=== PATIENT | female | born 1965 | race Caucasian/White ===

== ENCOUNTER 2017-01-22 08:24 | Inpatient (IN) ==
[2017-01-22 08:58] LABS: Basophils % 0.3 % (0.0-0.8); Eosinophils % 0.2 % (0.00-10.9); Hematocrit 37.3 VOL% (35.7-47.0); Hemoglobin 11.8 GM/DL (12.0-16.0); Immature Granulocytes % 0.7 %; Lymphocytes # 1.4 10*3/uL (1.4-4.0); Lymphocytes % 8.9 % (21.3-54.2); Mean Corpuscular HGB Conc 31.6 GM/DL (32-36); Mean Corpuscular Hemoglobin 31 PG (27-34); Mean Corpuscular Volume 96.4 FL (87-102); Mean Platelet Volume 10.8 FL (9.6-12.0); Monocytes # 0.9 10*3/uL (0.11-0.8); Monocytes % 6.2 % (1.7-12.7); Neutrophils # 12.6 10*3/uL (1.4-7.4); Neutrophils % 83.7 % (38.7-73.9); Platelet Count 247 T/CUMM (130-400); Red Blood Count 3.87 MC/CUMM (3.8-5.5); Red Cell Distribution Width 13.3 % (9.3-17.3); White Blood Count 15.1 T/CUMM (4-12)
--- NOTE | 2017-01-22 09:02 | XRay Report ---
Referring Physician: Davion Jackson Exam: XR chest 1V portable Date: January 22, 2017 at 8:41 AM Reason: Shortness of breath Comparison: Chest 2 views May 23, 2016 Findings: The cardiac silhouette is upper normal in size. There are opacities within both lower lung zones. This could represent pulmonary edema or pneumonia with atelectasis. No pneumothorax is identified, but there is likely minimal bilateral pleural fluid. No acute osseous process is seen. Impression: There are opacities within both lower lung zones. This could represent pulmonary edema or pneumonia with atelectasis. Minimal bilateral pleural fluid is also suspected. PROCEDURE INTERPRETED AT [facility] DEPARTMENT OF RADIOLOGY Final Report Signed by: Dr. Skylar Alvares
[2017-01-22 09:08] LABS: INR 1.2; PT Patient Result 12.9 SECS; Partial Thromboplastin Time 27.8 SECS (0-40)
[2017-01-22 09:26] LABS: Alanine Aminotransferase 19 U/L (13-56); Albumin 2.5 G/DL (3.4-5.0); Alkaline Phosphatase 87 U/L (45-117); Aspartate Amino Transferase 43 U/L (0-37); Blood Urea Nitrogen 15 MG/DL (7-18); Calcium 8.2 MG/DL (8.5-10.1); Glucose 141 MG/DL (74-106); Magnesium 2.1 MG/DL (1.8-2.4); Osmolality,Calculated 281.4 MOS/KG (273-304); Potassium 4.2 MMOL/L (3.5-5.1); Sodium 140 MMOL/L (136-145); Total Protein 6.2 G/DL (6.4-8.3); Troponin I Only < 0.015 NG/ML (0.00-0.045)
[2017-01-22 09:58] LABS: Apearance,Urine Slightly Hazy (Clear); Bacteria,Urine Occasional /HPF (Few); Bilirubin,Urine Negative (Negative); Blood, Urine Moderate mg/dL (Negative); Glucose,Urine (UA) Negative (Negative); Ketones,Urine 80 mg/dL (Negative); Mucus,Urine Occasional /LPF (Occasional); Nitrite,Urine Negative (Negative); Protein,Urine 30 MG/DL; RBC,Urine 22 /HPF (0-4); Squamous Epithelial Cell,Urine Occasional /HPF (0-10); Urine Color Yellow (Yellow); Urine Urobilinogen < 2.0 EU/DL (0.2-1.0); WBC,Urine 1 /HPF (0-6)
[2017-01-22] MEDS ORDERED: cefTRIAXone 1,000 MG in SODIUM CHLORIDE 0.9% 100 ML IV STA (09:59)
[2017-01-22] MEDS ORDERED: methylPREDNISolone SOD SUC 125 MG/2 ML VIAL IV STA (09:59)
[2017-01-22] MEDS ORDERED: ONDANSETRON 4 MG/2 ML VIAL IV STA (09:59)
[2017-01-22] MEDS ORDERED: ASPIRIN 325 MG TABLET PO STA (09:59)
[2017-01-22] MEDS ORDERED: FUROSEMIDE 100 MG/10 ML VIAL IV STA (09:59)
[2017-01-22] MEDS ORDERED: ALBUTEROL 2.5 MG/3 ML NEB RESP TX SCH (10:00)
--- NOTE | 2017-01-22 10:13 | Emergency Department Note ---
Flakito Narayanan Mantricia, am scribing for, and in the presence of, Arthur Rider MD 10:07. Tereso Narayanan Charles R, MD, personally performed the services described in this documentation, ascribed by Sana Fraga in my presence, and it is both accurate and complete 013 . Arrival - Arrival Chief Complaint: Shortness of Breath Stated Complaint: Shortness of Breath ED Nursing Triage Note: pt is having shortness of breath. pt home lasix dose is now 1/2 dose for past two weeks. she has noticed the sob increasing since the decrease in lasix dose. Mode of Arrival: Stretcher Limitations: No Limitations Source: Patient Time Seen by Provider: 01/22/17 09:19 - History of Present Illness HPI Narrative: Pt is a 51 y/o white female arriving to ED by EMS with c/o SOB that onset yesterday. She reports that her Lasix dose has been cut to 1/2 dose for the past two weeks. She has noticed waxing and waning SOB since the Lasix dose decrease. She is unsure if she has a PMHx of CHF; however, she does report sleep apnea, in which she wears a mask nightly. She states she occasionally takes breathing treatments at home and is also on home O2, Prednisone, and a daily Aspirin. Pt also reports OTT and a fever all week, with the highest being 101. Pt's PCP is Dr. Green. She reports no other complaints to ED. Onset (ago): day(s) Consistency: constant Severity: mild Allergies/Adverse Reactions: Allergies Allergy/AdvReac Type Severity Reaction Status Date / Time No Known Allergies Allergy Verified 05/23/16 10:39 Home Medications: Home Medications Medication Instructions Recorded Confirmed Type Carvedilol [Coreg] 12.5 mg PO BID 05/17/16 05/23/16 History Escitalopram [Lexapro] 10 mg PO DAILY 05/17/16 05/23/16 History Fluticasone 50 Mcg Nasal [place] 1 spray BOTH NARES DAILY 05/17/16 05/23/16 History [Flonase Nasal [place]] Gabapentin 100 mg PO TID 05/17/16 05/23/16 History Insulin NPH Human Isophane 20 unit SUBCUT QAM 05/17/16 05/23/16 History [NovoLIN N] Insulin Regular, Human [NovoLIN R] See Protocol SUBCUT DIRECTED PRN 05/17/16 05/23/16 History Levothyroxine Tab [Synthroid Tab] 25 mcg PO DAILY 05/17/16 05/23/16 History Magnesium Chloride [Slow Mag] 64 mg PO BID 05/17/16 05/23/16 History Omeprazole [Prilosec] 20 mg PO BID 05/17/16 05/23/16 History Oxycodone HCl 10 mg PO TID PRN 05/17/16 05/23/16 History Tizanidine HCl [Zanaflex] 4 mg PO TID 05/17/16 05/23/16 History predniSONE TAB [PredniSONE] 10 mg PO DAILY 05/17/16 05/23/16 History sulfaSALAzine [Sulfasalazine] 500 mg PO BID 05/17/16 05/23/16 History Acetaminophen Tab [Tylenol Tab] 650 mg PO Q6H PRN #0 tablet 05/25/16 Rx Albuterol/Ipratropium Neb [Duoneb] 3 ml RESP TX RT Q6H #120 05/25/16 Rx nebulization solution Aspirin Tab 325 mg PO DAILY tablet 05/25/16 Rx Docusate Sodium Cap [Colace Cap] 100 mg PO BID capsule 05/25/16 Rx Furosemide Tab [Lasix Tab] 20 mg PO DAILY #30 tablet 05/25/16 Rx Glimepiride [Amaryl] 2 mg PO DAILY W/BREAKFAST #30 05/25/16 Rx tablet Hydroxychloroquine [Plaquenil] 200 mg PO BID #60 05/25/16 05/23/16 Rx Insulin NPH Hum/Reg Insulin Hm 40 unit SUBCUT TID #0 05/25/16 05/23/16 Rx [NovoLIN 70/30] Insulin NPH [HumuLIN N] 20 unit SUBCUT BEDTIME #5 injection 05/25/16 Rx Potassium Chloride Cap/Tab [K Dur] 20 meq PO TID W/MEALS #90 tablet 05/25/16 Rx Skin Healing Oint (Aquaphor) 1 applic TOP PRN PRN #0 ointment 05/25/16 Rx [Aquaphor] Review of System - Review of System 12 point system: reviewed and no additional remarkable complaints except as stated - Review of System Constitutional: Present: fever (all week). Absent: chills, diaphoresis Eyes: Absent: discharge, pain Head/Ears/Nose/Throat: Absent: earache, epistaxis Respiratory: Absent: cough, respiratory distress, wheezing Cardiovascular: Present: dyspnea on exertion. Absent: chest pain, palpitations Gastrointestinal: Absent: abdominal pain, nausea, vomiting, diarrhea Genitourinary female: Absent: abnormal menses, dysuria Musculoskeletal: Absent: arm pain, back pain, leg pain, neck pain Skin: Absent: rash, lesions Neurological: Absent: headache, weakness Psychiatric: Absent: anxiety, depression Medical,Surgical,& Family Hx - Medical History Cardio: History of: CHF, Hypertension Endocrine: History of: Diabetes Mellitus (IDDM), Dyslipidemia Rheumatology: History of;: Rheumatoid Arthritis Respiratory: History of: Obstructive Sleep Apnea Genitourinary: History of: Bladder Problem ("poor bladder control") Gastrointestinal: History of: GI Problems (GASTROPARESIS) Musculoskeletal: History of: Osteoporosis - Surgical History Thoracic Surgeries: Surgical HX of;: Kidney (Renal Surgery) Orthopedic Surgeries: Surgical HX of;: 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 ") - Family History Family History: Reports;: Family Cancer (father), Family Diabetes (father, mother, siblings), Family Heart Disease (father, mother), Family Hypertension ( father, mother, siblings) - Social History Smoking Status: Never smoker Frequency of Alcohol Use: Occasionally Type of Drug Use: None Exam Vital Signs: Vital Signs Temperature 97.2 F L 01/22/17 08:25 Pulse Rate 59 L 01/22/17 10:10 Respiratory Rate 18 01/22/17 10:10 Blood Pressure 140/56 01/22/17 09:30 O2 Sat by Pulse Oximetry 99 01/22/17 10:10 - General General appearance: alert, in no apparent distress, other (morbidly obese; cushion-type body features) - Head Head exam: Present: atraumatic, normocephalic, normal inspection - Eye Eye exam: Present: normal appearance, PERRL, EOMI - ENT ENT exam: Present: normal exam, normal oropharynx, mucous membranes moist, TM's normal bilaterally, normal external ear exam - Neck Neck exam: Present: normal inspection, full ROM, trachea midline. Absent: tenderness - Chest Chest inspection: Present: normal inspection, symmetric chest wall rise. Absent : tenderness - Respiratory Respiratory exam: Present: rales, wheezes, other (labored breathing) - Cardiovascular Cardiovascular exam: Present: regular rate, normal rhythm, normal heart sounds - Abdominal Exam Abdominal exam: Present: soft, normal bowel sounds. Absent: distention, tenderness, guarding, rebound - Extremities Exam Extremities exam: Present: normal inspection, full ROM, normal capillary refill , other (+3 LE edema). Absent: tenderness, pedal edema - Back Exam Back exam: Present: normal inspection, full ROM. Absent: tenderness - Neurological Exam Neurological exam: Present: alert, oriented X3, CN II-XII intact, normal gait, reflexes normal - Psychiatric Psychiatric exam: Present: normal affect, normal mood - Skin Skin exam: Present: warm, dry, intact, normal color Course - Consultations Consultation #1: Dr. Roxy Green will admit patient Time: 10:26 Results - Labs CBC & BMP: 01/22/17 08:42 01/22/17 08:42 Lab Results: I have reviewed the patients labs Labs: Laboratory Tests 01/22/17 01/22/17 01/22/17 08:42 08:42 08:42 WBC 15.1 H Hgb 11.8 L MCHC 31.6 L Neut % (Auto) 83.7 H Lymph % (Auto) 8.9 L Neut # (Auto) 12.6 H [place] # (Auto) 0.9 H Anion Gap 15.2 H Glucose 141 H Calcium 8.2 L AST 43 H B-Natriuretic Peptide Total Protein 6.2 L Albumin 2.5 L Globulin 3.7 H Albumin/Globulin Ratio 0.6 L Urine Urobilinogen < 2.0 H 01/22/17 08:42 WBC Hgb MCHC Neut % (Auto) Lymph % (Auto) Neut # (Auto) [place] # (Auto) Anion Gap Glucose Calcium AST B-Natriuretic Peptide 251 H Total Protein Albumin Globulin Albumin/Globulin Ratio Urine Urobilinogen - Diagnostic Findings Procedure: Chest x-ray: report reviewed by me (There are opacities within both lower lung zones. This could represent pulmonary edema or pneumonia with atelectasis. Minimal bilateral pleural fluid is also suspected. ) Critical Care Time Critical Care Time: Yes Total Critical Care Time: 60 Disposition Clinical Impression: Congestive heart failure, Hypoventilation associated with obesity, Diabetes mellitus, Morbid obesity, Pneumonia, Exertional dyspnea, Obstructive sleep apnea Case discussed with: patient, patient's family Disposition: Still a Patient Condition: Stable Time of Disposition: 10:27
[2017-01-22] MEDS ORDERED: ENOXAPARIN 120 MG/0.8 ML SYRINGE SUBCUT STA (10:29)
[2017-01-22] MEDS: SODIUM CHLORIDE 0.9% 1,000 ML IV SCH ×2 (10:37→23:52)
[2017-01-22] MEDS ORDERED: FUROSEMIDE 100 MG/10 ML VIAL ONE (10:44)
[2017-01-22] MEDS ORDERED: ONDANSETRON 4 MG/2 ML VIAL ONE (10:44)
[2017-01-22] MEDS ORDERED: cefTRIAXone 1,000 MG VIAL ONE ×2 (10:44→22:47)
[2017-01-22] MEDS ORDERED: methylPREDNISolone SOD SUC 125 MG/2 ML VIAL ONE (10:44)
[2017-01-22] MEDS ORDERED: SODIUM CHLORIDE 0.9% 100 ML IV ONE (10:44)
[2017-01-22] MEDS ORDERED: ASPIRIN 325 MG TABLET ONE (10:44)
[2017-01-22] MEDS ORDERED: ENOXAPARIN 120 MG/0.8 ML SYRINGE SUBCUT ONE (10:44)
[2017-01-22 11:27] LABS: ABG Base Excess 2.6 MMOL/L (-2.5-2.5); ABG HCO3 26.7 MMOL/L (20-26); ABG Oxygen Saturation 95.2 % (95-100); ABG PCO2 48.1 MM HG (35-48); ABG PO2 81.1 MM HG (80-95); ABG TCO2 25.4 MMOL/L (23-27)
--- NOTE | 2017-01-22 17:19 | Internal Med History&Physical ---
Assessment and Plan (1) Congestive heart failure Status: Acute Current Visit: Yes Qualifiers: Congestive heart failure type: unspecified congestive heart failure type Congestive heart failure chronicity: acute Qualified Code(s): I50.9 - Heart failure, unspecified (2) Exertional dyspnea Status: Chronic Current Visit: Yes (3) Hypoxia Status: Acute Current Visit: Yes (4) Obstructive sleep apnea Status: Chronic Current Visit: Yes (5) Pneumonia Status: Acute Current Visit: Yes Qualifiers: Pneumonia type: due to unspecified organism Laterality: bilateral Lung location: lower lobe of lung Qualified Code(s): J18.9 - Pneumonia, unspecified organism (6) Diabetes mellitus Status: Chronic Current Visit: Yes Qualifiers: Diabetes mellitus type: type 2 Diabetes mellitus complication detail: with polyneuropathy Diabetes mellitus care home insulin use: with care home use (7) Hypoventilation associated with obesity Status: Chronic Current Visit: Yes (8) Morbid obesity Status: Chronic Current Visit: Yes Qualifiers: Obesity type: due to excess calories Qualified Code(s): E66.01 - Morbid ( severe) obesity due to excess calories History of Present Illness Chief complaint: worsening shortness of breath History of present illness: Ms. Brown is a 51 year old female with history of left solitary kidney (right nephrectomy secondary to renal carcinoma), juvenile onset RA, DM, gastroparesis , peripheral neuropathy, osteoarthritis, hypothyroid, depression, MANPREET on CPAP, home oxygen, peripheral chronic lymphedema, multiple skin wounds, Vit D deficiency, urinary urge incontinence, morbid obesity, who presented to ER with acute and worsening dyspnea. She has been febrile at home for about one week. While in the ER, she bent her head down and developed acute severe oxygen de- saturation as witnessed by ER staff, and she was placed on BiPAP and sent to CCU. She was seen in clinic over a year ago as a new patient and was sent to Weight Management clinic. She went initially. She is not a candidate for gastric sleeve, because of respiratory failure. Also, appropriate lifestyle changes to support weight loss are an issue for her. Will have hiv cts specialist see her in hospital. Home Medications Medication Instructions Recorded Confirmed Type Carvedilol [Coreg] 12.5 mg PO BID 05/17/16 01/22/17 History Escitalopram [Lexapro] 10 mg PO QAM 05/17/16 01/22/17 History Fluticasone 50 Mcg Nasal [place] 1 spray BOTH NARES QAM 05/17/16 01/22/17 History [Flonase Nasal [place]] Insulin Regular, Human [NovoLIN R] See Protocol SUBCUT DIRECTED PRN 05/17/16 01/22/17 History Levothyroxine Tab [Synthroid Tab] 25 mcg PO QAM 05/17/16 01/22/17 History Magnesium Chloride [Slow Mag] 64 mg PO BID 05/17/16 01/22/17 History Omeprazole [Prilosec] 20 mg PO BID 05/17/16 01/22/17 History Oxycodone HCl 10 mg PO TID PRN 05/17/16 01/22/17 History Tizanidine HCl [Zanaflex] 4 mg PO TID 05/17/16 01/22/17 History predniSONE TAB [PredniSONE] 10 mg PO DAILY 05/17/16 01/22/17 History sulfaSALAzine [Sulfasalazine] 500 mg PO BID 05/17/16 01/22/17 History Acetaminophen Tab [Tylenol Tab] 650 mg PO Q6H PRN #0 tablet 05/25/16 01/22/17 Rx Albuterol/Ipratropium Neb [Duoneb] 3 ml RESP TX RT Q6H #120 05/25/16 01/22/17 Rx nebulization solution Glimepiride [Amaryl] 2 mg PO DAILY W/BREAKFAST #30 05/25/16 01/22/17 Rx tablet Hydroxychloroquine [Plaquenil] 200 mg PO BID #60 05/25/16 01/22/17 Rx Potassium Chloride Cap/Tab [K Dur] 20 meq PO TID W/MEALS #90 tablet 05/25/16 Rx Aspirin Tab 325 mg PO QAM 01/22/17 01/22/17 History Docusate Sodium Cap [Colace Cap] 100 mg PO BID PRN 01/22/17 01/22/17 History Furosemide Tab [Lasix Tab] 20 mg PO QAM 01/22/17 01/22/17 History Insulin NPH Hum/Reg Insulin Hm 40 unit SUBCUT TID W/MEALS 01/22/17 01/22/17 History [NovoLIN 70/30] Insulin NPH Human Isophane 20 unit SUBCUT BID 01/22/17 01/22/17 History [Novolin N] Pregabalin [Lyrica] 75 mg PO BID 01/22/17 01/22/17 History Allergies Allergy/AdvReac Type Severity Reaction Status Date / Time No Known Allergies Allergy Verified 05/23/16 10:39 Medical,Surgical,& Family Hx - Medical History Cardio: History of: CHF, Hypertension Psychological: History of: Depression Endocrine: History of: Diabetes Mellitus (IDDM), Dyslipidemia Rheumatology: History of;: Rheumatoid Arthritis Respiratory: History of: Obstructive Sleep Apnea Renal: History of: Renal (Kidney) Cancer (right kidney) Genitourinary: History of: Bladder Problem ("poor bladder control") Gastrointestinal: History of: GI Problems (GASTROPARESIS) Musculoskeletal: History of: Osteoporosis Hematology: History of: Anemia Other: History of: Skin Problems (peripheral edema; history of skin abscess) - Surgical History Thoracic Surgeries: Surgical HX of;: Nephrectomy (right kidney) Abdominal Surgeries: Surgical HX of: Abdominal Surgery (liver biopsy), Cholecystectomy Reproductive Surgeries: Surgical HX of;: Breast Surgery (right breast abscess), Section, Dilation and Curettage, Genitourinary Surgery (vaginal abscess ) Orthopedic Surgeries: Surgical HX of;: 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 ") - Family History Family History: Reports;: Family Cancer (father), Family Diabetes (father, mother, siblings), Family Heart Disease (father, mother), Family Hypertension ( father, mother, siblings) - Social History Smoking Status: Never smoker Frequency of Alcohol Use: Occasionally Type of Drug Use: None Functional capacity: wheelchair bound - Constitutional Constitutional: Present: fatigue, fever(s), lethargy, malaise, weakness, weight gain - Respiratory Respiratory: Present: dyspnea, dyspnea on exertion - Musculoskeletal Musculoskeletal: Present: arthralgias, myalgias - Psychiatric Psychiatric: Present: depression - Endocrine Endocrine: Present: fatigue Exam - Constitutional Vitals: Period Temp Pulse Resp BP Sys/Wallis Pulse Ox Last 24 Hr 97.7 F 65-73 14-28 110-180/39-87 94-100 General appearance: no acute distress - Head Head exam: Present: normocephalic - Eye Eye exam: Present: EOMI - Respiratory Respiratory exam: Present: clear to auscultation bilaterally. Absent: rales, rhonchi, wheezes - Cardiovascular Cardiovascular exam: Present: regular rate and rhythm - GI/Abdominal GI/Abdominal exam: Present: normal bowel sounds, soft. Absent: tenderness - Extremities Exam Extremities exam: Present: edema - Neurological Exam Neurological exam: Present: alert, oriented X3, CN II-XII intact - Psychiatric Psychiatric exam: Present: normal mood - Skin Skin exam: Present: warm, dry Results - Labs CBC & BMP: 01/22/17 08:42 01/22/17 08:42 - EKG EKG shows: sinus rhythm - Diagnostic Findings Procedure: Chest x-ray: report reviewed by me, image reviewed by me
[2017-01-22] MEDS ORDERED: ONDANSETRON 4 MG/2 ML VIAL IV PRN (17:23)
[2017-01-22] MEDS ORDERED: GLUCAGON 1 MG VIAL IM PRN (17:23)
[2017-01-22] MEDS ORDERED: ACETAMINOPHEN 325 MG TABLET PO PRN (17:23)
[2017-01-22] MEDS ORDERED: DEXTROSE 50% 25 GM/50 ML VIAL IV PRN (17:23)
[2017-01-22] MEDS ORDERED: cefTRIAXone 1,000 MG in SODIUM CHLORIDE 0.9% 100 ML IV SCH (17:30)
[2017-01-22] MEDS ORDERED: LEVOFLOXACIN INJ 750 MG in PREMIX 1 EACH IV SCH (18:00)
[2017-01-22] MEDS: INSULIN REGULAR 100 UNIT/ML SUBCUT SCH ×2 (18:01→23:09)
[2017-01-22] MEDS: ENOXAPARIN 40 MG/0.4 ML SYRINGE SUBCUT SCH (18:01)
[2017-01-22] MEDS: FUROSEMIDE 40 MG/4 ML VIAL IV SCH (18:02)
--- NOTE | 2017-01-22 19:18 | Sleep Medicine Consult ---
Assessment and Plan (1) Obstructive sleep apnea Status: Acute Assessment and plan: I have not been able to review her previous records from the sleep clinic. I do not know of the severity of her obstructive sleep apnea or of her previous treatment history. She sounds as though she has been compliant with CPAP in the past. I did explain to her the importance of follow-up in the sleep clinic. I have asked her to get family members to bring her CPAP machine to the hospital so we can check it and make sure that it is working effectively. Will also be able to assess compliance and control hopefully. She very likely will need re-titration for her obstructive sleep apnea in the sleep clinic after discharge. With regard to her current treatment, she is being treated for acute hypoxic respiratory failure possibly secondary to congestive heart failure or pneumonia. I will defer treatment will BiPAP to the primary care service or pulmonary medicine. Once her pulmonary status is stabilized, she can be restarted on her regular CPAP therapy. I will be out of town tomorrow but the sleep lab can be checked if her CPAP device is available for download. Thank you for this consult and the opportunity to participate in her care. Current Visit: Yes (2) Congestive heart failure Status: Acute Assessment and plan: Uncontrolled obstructive sleep apnea certainly can be an exacerbating factor to CHF. It will be important to follow her up in the sleep clinic after discharge to reassess her sleep apnea and her treatment for best outcomes. Current Visit: Yes (3) Diabetes mellitus Status: Chronic Assessment and plan: The prevalence rate for obstructive sleep apnea in patients with type 2 diabetes can be as high as 86%. Those patients with moderate to severe obstructive sleep apnea are at a greater risk for diabetic nephropathy and neuropathy. Compliance with CPAP therapy for these patients can lead to improvement in glycemic control and improvement in insulin sensitivity. 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 This will need to be followed up and reassessed in the sleep center. Current Visit: Yes History of Present Illness Chief complaint: Sleep apnea History of present illness: Ms. Brown is a 51 year old female admitted with acute hypoxic respiratory insufficiency. She is being treated for a combination of congestive heart failure and pneumonia. She has recently developed increasing issues with shortness of breath and fever. She is currently on BiPAP therapy empirically placed by the emergency room physician and seems to be doing well on this. She does have a history of obstructive sleep apnea diagnosed many years ago. She had been on CPAP therapy but has not been seen in the sleep clinic for several years. She has recently been sleeping alone and in her recliner. No one is told her that she is snoring around her machine but she has begun having increasing issues with daytime fatigue and sleepiness and more prone to napping. Home Medications Medication Instructions Recorded Confirmed Type Carvedilol [Coreg] 12.5 mg PO BID 05/17/16 01/22/17 History Escitalopram [Lexapro] 10 mg PO QAM 05/17/16 01/22/17 History Fluticasone 50 Mcg Nasal [place] 1 spray BOTH NARES QAM 05/17/16 01/22/17 History [Flonase Nasal [place]] Insulin Regular, Human [NovoLIN R] See Protocol SUBCUT DIRECTED PRN 05/17/16 01/22/17 History Levothyroxine Tab [Synthroid Tab] 25 mcg PO QAM 05/17/16 01/22/17 History Magnesium Chloride [Slow Mag] 64 mg PO BID 05/17/16 01/22/17 History Omeprazole [Prilosec] 20 mg PO BID 05/17/16 01/22/17 History Oxycodone HCl 10 mg PO TID PRN 05/17/16 01/22/17 History Tizanidine HCl [Zanaflex] 4 mg PO TID 05/17/16 01/22/17 History predniSONE TAB [PredniSONE] 10 mg PO DAILY 05/17/16 01/22/17 History sulfaSALAzine [Sulfasalazine] 500 mg PO BID 05/17/16 01/22/17 History Acetaminophen Tab [Tylenol Tab] 650 mg PO Q6H PRN #0 tablet 05/25/16 01/22/17 Rx Albuterol/Ipratropium Neb [Duoneb] 3 ml RESP TX RT Q6H #120 05/25/16 01/22/17 Rx nebulization solution Glimepiride [Amaryl] 2 mg PO DAILY W/BREAKFAST #30 05/25/16 01/22/17 Rx tablet Hydroxychloroquine [Plaquenil] 200 mg PO BID #60 05/25/16 01/22/17 Rx Potassium Chloride Cap/Tab [K Dur] 20 meq PO TID W/MEALS #90 tablet 05/25/16 Rx Aspirin Tab 325 mg PO QAM 01/22/17 01/22/17 History Docusate Sodium Cap [Colace Cap] 100 mg PO BID PRN 01/22/17 01/22/17 History Furosemide Tab [Lasix Tab] 20 mg PO QAM 01/22/17 01/22/17 History Insulin NPH Hum/Reg Insulin Hm 40 unit SUBCUT TID W/MEALS 01/22/17 01/22/17 History [NovoLIN 70/30] Insulin NPH Human Isophane 20 unit SUBCUT BID 01/22/17 01/22/17 History [Novolin N] Pregabalin [Lyrica] 75 mg PO BID 01/22/17 01/22/17 History Allergies Allergy/AdvReac Type Severity Reaction Status Date / Time No Known Allergies Allergy Verified 05/23/16 10:39 Review of systems: Otherwise unremarkable other than as stated above. She denies any significant cough or sputum production. Exam (Pulmonay) H&P - Constitutional Vitals: Period Temp Pulse Resp BP Sys/Wallis Pulse Ox Last 24 Hr 97.6 F-97.7 F 65-73 14-30 110-180/39-87 94-100 Exam: She is alert and responsive in no acute distress at present. She answers questions appropriately. Pupils equal round reactive to light and accommodation. Extraocular movements intact. Oropharynx with a class IV Mallampati exam. Neck large supple without adenopathy. Chest with symmetrical breath sounds without focal wheeze or rhonchi. Cardiac exam reveals a regular rhythm without murmur or gallop. Abdomen obese nontender without palpable hepatosplenomegaly or mass. Extremities without significant edema or clubbing. Neurologically, she is grossly intact. Medical,Surgical,& Family Hx - Medical History Cardio: History of: CHF, Hypertension Psychological: History of: Anxiety Disorders, Depression HEENT: History of: Eye Problem (cataract surg bilateral) Endocrine: History of: Diabetes Mellitus (IDDM), Dyslipidemia Rheumatology: History of;: Rheumatoid Arthritis Respiratory: History of: Obstructive Sleep Apnea Renal: History of: Renal (Kidney) Cancer (right kidney) Genitourinary: History of: Bladder Problem ("poor bladder control") Gastrointestinal: History of: GI Problems (GASTROPARESIS) Musculoskeletal: History of: Osteoporosis Hematology: History of: Anemia Other: History of: Cancer (right kidney), Skin Problems (peripheral edema; history of skin abscess) No history of: Anesthesia Reactions - Surgical History Thoracic Surgeries: Surgical HX of;: Kidney (Renal Surgery), Nephrectomy (right kidney) Neurologic Surgeries: Patient denies: Neurologic Surgery Abdominal Surgeries: Surgical HX of: Abdominal Surgery (liver biopsy), Cholecystectomy Reproductive Surgeries: Surgical HX of;: Breast Surgery (right breast abscess), Section, Dilation and Curettage, Genitourinary Surgery (vaginal abscess ), Tubal Ligation Orthopedic Surgeries: Surgical HX of;: 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
[2017-01-22] MEDS: LEVOFLOXACIN INJ 250 MG in PREMIX 1 EACH IV SCH (22:45)
[2017-01-22] MEDS: DOCUSATE SODIUM 100 MG CAPSULE PO SCH (23:09)
[2017-01-22] MEDS: methylPREDNISolone SOD SUC 40 MG/1 ML VIAL IV SCH (23:09)
[2017-01-23] MEDS: methylPREDNISolone SOD SUC 40 MG/1 ML VIAL IV SCH ×3 (06:05→18:29)
[2017-01-23 06:46] LABS: Basophils % 0.2 % (0.0-0.8); Hematocrit 40.2 VOL% (35.7-47.0); Hemoglobin 12.1 GM/DL (12.0-16.0); Immature Granulocytes % 1.7 %; Immature Granulocytes Absolute 0.18 #; Lymphocytes # 0.8 10*3/uL (1.4-4.0); Lymphocytes % 7.2 % (21.3-54.2); Mean Corpuscular HGB Conc 30.1 GM/DL (32-36); Mean Corpuscular Hemoglobin 30 PG (27-34); Mean Corpuscular Volume 100.5 FL (87-102); Monocytes # 0.4 10*3/uL (0.11-0.8); Monocytes % 3.3 % (1.7-12.7); NRBC # 0.02 10*3/uL; Neutrophils # 9.5 10*3/uL (1.4-7.4); Neutrophils % 87.6 % (38.7-73.9); Platelet Count 270 T/CUMM (130-400); Red Cell Distribution Width 13.2 % (9.3-17.3); White Blood Count 10.8 T/CUMM (4-12)
[2017-01-23 07:42] LABS: 25 Hydroxy Vitamin D Total 26.5 NG/ML
--- NOTE | 2017-01-23 07:43 | EKG Report ---
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
[2017-01-23 07:49] LABS: Albumin 2.6 G/DL (3.4-5.0); Bilirubin,Total 0.4 MG/DL (0.2-1.0); Magnesium 2.1 MG/DL (1.8-2.4); Osmolality,Calculated 294.3 MOS/KG (273-304); Potassium 4.4 MMOL/L (3.5-5.1); Total Protein 6.6 G/DL (6.4-8.3)
[2017-01-23 08:02] LABS: Risk Ratio 3.24; Thyroid Stimulating Hormone 0.481 uIU/ml (0.358-3.74); VLDL CHOLESTEROL 29.8 MG/DL
[2017-01-23] MEDS: FUROSEMIDE 40 MG/4 ML VIAL IV SCH (10:22)
[2017-01-23] MEDS: PANTOPRAZOLE 40 MG VIAL IV SCH (10:22)
[2017-01-23] MEDS: INSULIN REGULAR 100 UNIT/ML SUBCUT SCH ×4 (10:23→21:55)
[2017-01-23] MEDS: DOCUSATE SODIUM 100 MG CAPSULE PO SCH ×2 (10:23→21:55)
[2017-01-23] MEDS: THEOPHYLLINE ER (24 HR) 400 MG CAPSULE PO SCH (10:23)
--- NOTE | 2017-01-23 12:17 | Pulmonology Consult Note ---
Assessment and Plan (1) Morbid obesity Status: Chronic Assessment and plan: Patient is extremely large and will continue with her BiPAP. She will continue with bronchodilators and present therapy. Current Visit: Yes Qualifiers: Obesity type: due to excess calories Qualified Code(s): E66.01 - Morbid ( severe) obesity due to excess calories (2) Diabetes mellitus Status: Chronic Assessment and plan: Her glucoses are being monitored. Current Visit: Yes Qualifiers: Diabetes mellitus type: type 2 Diabetes mellitus complication detail: with polyneuropathy Diabetes mellitus chcf insulin use: with oil heaterman use (3) Essential hypertension Status: Chronic Assessment and plan: Her blood pressure has been reasonably stable. Current Visit: No (4) Hypoventilation associated with obesity Status: Chronic Assessment and plan: She does have mild CO2 retention and will try low-dose theophylline. Current Visit: Yes (5) Congestive heart failure Status: Acute Assessment and plan: The patient does seem to be diuresing fairly well. Current Visit: Yes Qualifiers: Congestive heart failure type: unspecified congestive heart failure type Congestive heart failure chronicity: acute Qualified Code(s): I50.9 - Heart failure, unspecified (6) Pneumonia Status: Acute Assessment and plan: The patient is getting antibiotics and may have some mild pneumonia. Current Visit: Yes Qualifiers: Pneumonia type: due to unspecified organism Laterality: bilateral Lung location: lower lobe of lung Qualified Code(s): J18.9 - Pneumonia, unspecified organism (7) Obstructive sleep apnea Status: Chronic Assessment and plan: The patient's CPAP machine is being evaluated. Current Visit: Yes History of Present Illness Chief complaint: Shortness of breath History of present illness: Ms. Brown is a 51 year old white female that has a history of morbid obesity along with diabetes, JRA, neuropathy, hypothyroidism, obstructive sleep apnea, and previous renal cell cancer. She has had a previous right nephrectomy. Patient is extremely overweight but does use BiPAP at home. She came in with increased congestion and shortness of breath and has significant O2 desaturations. She is being treated for pneumonia and mild overload. She apparently had a fairly good night and says she is feeling better. She is using her CPAP machine at night. She says she is not coughing up any purulent secretions. She denies having any chest pain. She is a lifetime non-smoker and is never definitely had asthma. She says she will use an inhaler occasionally. She is comfortable at the present time. Home Medications Medication Instructions Recorded Confirmed Type Carvedilol [Coreg] 12.5 mg PO BID 05/17/16 01/22/17 History Escitalopram [Lexapro] 10 mg PO QAM 05/17/16 01/22/17 History Fluticasone 50 Mcg Nasal [place] 1 spray BOTH NARES QAM 05/17/16 01/22/17 History [Flonase Nasal [place]] Insulin Regular, Human [NovoLIN R] See Protocol SUBCUT DIRECTED PRN 05/17/16 01/22/17 History Levothyroxine Tab [Synthroid Tab] 25 mcg PO QAM 05/17/16 01/22/17 History Magnesium Chloride [Slow Mag] 64 mg PO BID 05/17/16 01/22/17 History Omeprazole [Prilosec] 20 mg PO BID 05/17/16 01/22/17 History Oxycodone HCl 10 mg PO TID PRN 05/17/16 01/22/17 History Tizanidine HCl [Zanaflex] 4 mg PO TID 05/17/16 01/22/17 History predniSONE TAB [PredniSONE] 10 mg PO DAILY 05/17/16 01/22/17 History sulfaSALAzine [Sulfasalazine] 500 mg PO BID 05/17/16 01/22/17 History Acetaminophen Tab [Tylenol Tab] 650 mg PO Q6H PRN #0 tablet 05/25/16 01/22/17 Rx Albuterol/Ipratropium Neb [Duoneb] 3 ml RESP TX RT Q6H #120 05/25/16 01/22/17 Rx nebulization solution Glimepiride [Amaryl] 2 mg PO DAILY W/BREAKFAST #30 05/25/16 01/22/17 Rx tablet Hydroxychloroquine [Plaquenil] 200 mg PO BID #60 05/25/16 01/22/17 Rx Potassium Chloride Cap/Tab [K Dur] 20 meq PO TID W/MEALS #90 tablet 05/25/16 Rx Aspirin Tab 325 mg PO QAM 01/22/17 01/22/17 History Docusate Sodium Cap [Colace Cap] 100 mg PO BID PRN 01/22/17 01/22/17 History Furosemide Tab [Lasix Tab] 20 mg PO QAM 01/22/17 01/22/17 History Insulin NPH Hum/Reg Insulin Hm 40 unit SUBCUT TID W/MEALS 01/22/17 01/22/17 History [NovoLIN 70/30] Insulin NPH Human Isophane 20 unit SUBCUT BID 01/22/17 01/22/17 History [Novolin N] Pregabalin [Lyrica] 75 mg PO BID 01/22/17 01/22/17 History Allergies Allergy/AdvReac Type Severity Reaction Status Date / Time No Known Allergies Allergy Verified 05/23/16 10:39 - Constitutional Constitutional: Present: fatigue, weight gain. Absent: chills, fever(s) - EENT Eyes: Absent: loss of vision Ears: Absent: decreased hearing Nose, mouth and throat: Absent: dysphagia, headache(s), sinus pressure - Cardiovascular Cardiovascular: Present: dyspnea, edema, orthopnea. Absent: chest pain at rest - Respiratory Respiratory: Present: cough, dyspnea, wheezing. Absent: hemoptysis, change in phlegm color - Gastrointestinal Gastrointestinal: Absent: abdominal pain, change in bowel habits, dysphagia, nausea, vomiting - Genitourinary Genitourinary: Absent: difficulty urinating, dysuria, hematuria - Musculoskeletal Musculoskeletal: Present: arthralgias, myalgias - Neurological Neurological: Absent: abnormal speech, focal weakness, paresthesias - Psychiatric Psychiatric: Present: depression Exam (Pulmonay) H&P - Constitutional Vitals: Period Temp Pulse Resp BP Sys/Wallis Pulse Ox Last 24 Hr 97.2 F-98.7 F 58-74 14-30 110-180/39-87 23-100 General appearance: no acute distress, morbidly obese - Head Head exam: Present: normal inspection, normocephalic - Eye Eye exam: Present: EOMI. Absent: scleral icterus - ENT ENT exam: Present: normal exam, other (Class IV Mallampati exam) - Neck Neck exam: Absent: lymphadenopathy, thyromegaly - Respiratory Respiratory exam: Present: decreased breath sounds, rhonchi. Absent: accessory muscle use - Cardiovascular Cardiovascular exam: Present: regular rate and rhythm. Absent: gallop, systolic murmur - GI/Abdominal GI/Abdominal exam: Present: normal bowel sounds, soft. Absent: organomegaly, tenderness - Extremities Exam Extremities exam: Absent: calf tenderness, edema - Neurological Exam Neurological exam: Present: alert, oriented X3, CN II-XII intact - Psychiatric Psychiatric exam: Present: normal affect - Skin Skin exam: Present: warm, dry Medical,Surgical,& Family Hx - Medical History Cardio: History of: CHF, Hypertension Psychological: History of: Anxiety Disorders, Depression HEENT: History of: Eye Problem (cataract surg bilateral) Endocrine: History of: Diabetes Mellitus (IDDM), Dyslipidemia Rheumatology: History of;: Rheumatoid Arthritis Respiratory: History of: Obstructive Sleep Apnea Renal: History of: Renal (Kidney) Cancer (right kidney) Genitourinary: History of: Bladder Problem ("poor bladder control") Gastrointestinal: History of: GI Problems (GASTROPARESIS) Musculoskeletal: History of: Osteoporosis Hematology: History of: Anemia Other: History of: Cancer (right kidney), Skin Problems (peripheral edema; history of skin abscess) No history of: Anesthesia Reactions - Surgical History Thoracic Surgeries: Surgical HX of;: Kidney (Renal Surgery), Nephrectomy (right kidney) Neurologic Surgeries: Patient denies: Neurologic Surgery Abdominal Surgeries: Surgical HX of: Abdominal Surgery (liver biopsy), Cholecystectomy Reproductive Surgeries: Surgical HX of;: Breast Surgery (right breast abscess), Section, Dilation and Curettage, Genitourinary Surgery (vaginal abscess ), Tubal Ligation Orthopedic Surgeries: Surgical HX of;: 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 ") - Family History Family History: Reports;: Family Cancer (father), Family Diabetes (father, mother, siblings), Family Heart Disease (father, mother), Family Hypertension ( father, mother, siblings) - Social History Smoking Status: Never smoker Frequency of Alcohol Use: Occasionally Type of Drug Use: None Results - Labs CBC & BMP: 01/23/17 04:00 01/23/17 07:00 Labs: Her ABG showed a PO2 of 81 with a PCO2 of 48 and a pH of 7.38 - Diagnostic Findings Procedure: Chest x-ray: image reviewed by me, report reviewed by me (Chest x- ray does show increased markings in the base may have some mild overload.)
[2017-01-23] MEDS: cefTRIAXone 1,000 MG in SODIUM CHLORIDE 0.9% 100 ML IV SCH (12:27)
[2017-01-23] MEDS: DESITIN 4OZ/NYSTATIN 15 GRAM MIXTURE PASTE TOP SCH ×2 (12:27→21:56)
[2017-01-23] MEDS: NYSTATIN POWDER 15 GM BOTTLE TOP SCH ×2 (12:27→21:56)
--- NOTE | 2017-01-23 14:03 | XRay Report ---
Referring Physician: Arthur Rider Exam: XR chest 1V portable Date: January 23, 2017 at 3:28 AM Reason: Shortness of breath Comparison: Chest one view portable January 22, 2017 Findings: The cardiac silhouette is upper normal in size. There are opacities in the perihilar regions and within both lower lung zones. This likely represents pulmonary edema, atelectasis and possibly pneumonia. No pneumothorax is identified, but there is mild bilateral pleural fluid. The osseous structures appear stable. Impression: There is increased opacification and pleural fluid at the lower lung zones. PROCEDURE INTERPRETED AT [facility] DEPARTMENT OF RADIOLOGY Final Report Signed by: Dr. Skylar Alvares
--- NOTE | 2017-01-23 14:14 | Nephrology Consult Note ---
History of Present Illness Chief complaint: Solitary kidney History of present illness: Ms. Brown is a 51 year old female admitted for shortness of breath due to heart failure and hypoventilation/obesity syndrome. She has a history of nephrectomy for renal cell carcinoma. I have seen her in the recent past. I was asked by her son to see her when I saw him in the ICU this morning. She was taking Lasix 40 mg p.o. daily at home. She felt well and decreased her Lasix to 20 mg daily on her own. She denies dysuria Home Medications Medication Instructions Recorded Confirmed Type Carvedilol [Coreg] 12.5 mg PO BID 05/17/16 01/22/17 History Escitalopram [Lexapro] 10 mg PO QAM 05/17/16 01/22/17 History Fluticasone 50 Mcg Nasal [place] 1 spray BOTH NARES QAM 05/17/16 01/22/17 History [Flonase Nasal [place]] Insulin Regular, Human [NovoLIN R] See Protocol SUBCUT DIRECTED PRN 05/17/16 01/22/17 History Levothyroxine Tab [Synthroid Tab] 25 mcg PO QAM 05/17/16 01/22/17 History Magnesium Chloride [Slow Mag] 64 mg PO BID 05/17/16 01/22/17 History Omeprazole [Prilosec] 20 mg PO BID 05/17/16 01/22/17 History Oxycodone HCl 10 mg PO TID PRN 05/17/16 01/22/17 History Tizanidine HCl [Zanaflex] 4 mg PO TID 05/17/16 01/22/17 History predniSONE TAB [PredniSONE] 10 mg PO DAILY 05/17/16 01/22/17 History sulfaSALAzine [Sulfasalazine] 500 mg PO BID 05/17/16 01/22/17 History Acetaminophen Tab [Tylenol Tab] 650 mg PO Q6H PRN #0 tablet 05/25/16 01/22/17 Rx Albuterol/Ipratropium Neb [Duoneb] 3 ml RESP TX RT Q6H #120 05/25/16 01/22/17 Rx nebulization solution Glimepiride [Amaryl] 2 mg PO DAILY W/BREAKFAST #30 05/25/16 01/22/17 Rx tablet Hydroxychloroquine [Plaquenil] 200 mg PO BID #60 05/25/16 01/22/17 Rx Potassium Chloride Cap/Tab [K Dur] 20 meq PO TID W/MEALS #90 tablet 05/25/16 Rx Aspirin Tab 325 mg PO QAM 01/22/17 01/22/17 History Docusate Sodium Cap [Colace Cap] 100 mg PO BID PRN 01/22/17 01/22/17 History Furosemide Tab [Lasix Tab] 20 mg PO QAM 01/22/17 01/22/17 History Insulin NPH Hum/Reg Insulin Hm 40 unit SUBCUT TID W/MEALS 01/22/17 01/22/17 History [NovoLIN 70/30] Insulin NPH Human Isophane 20 unit SUBCUT BID 01/22/17 01/22/17 History [Novolin N] Pregabalin [Lyrica] 75 mg PO BID 01/22/17 01/22/17 History Allergies Allergy/AdvReac Type Severity Reaction Status Date / Time No Known Allergies Allergy Verified 05/23/16 10:39 Medical,Surgical,& Family Hx - Medical History Cardio: History of: CHF, Hypertension Psychological: History of: Anxiety Disorders, Depression HEENT: History of: Eye Problem (cataract surg bilateral) Endocrine: History of: Diabetes Mellitus (IDDM), Dyslipidemia Rheumatology: History of;: Rheumatoid Arthritis Respiratory: History of: Obstructive Sleep Apnea Renal: History of: Renal (Kidney) Cancer (right kidney) Genitourinary: History of: Bladder Problem ("poor bladder control") Gastrointestinal: History of: GI Problems (GASTROPARESIS) Musculoskeletal: History of: Osteoporosis Hematology: History of: Anemia Other: History of: Cancer (right kidney), Skin Problems (peripheral edema; history of skin abscess) No history of: Anesthesia Reactions - Surgical History Thoracic Surgeries: Surgical HX of;: Kidney (Renal Surgery), Nephrectomy (right kidney) Neurologic Surgeries: Patient denies: Neurologic Surgery Abdominal Surgeries: Surgical HX of: Abdominal Surgery (liver biopsy), Cholecystectomy Reproductive Surgeries: Surgical HX of;: Breast Surgery (right breast abscess), Section, Dilation and Curettage, Genitourinary Surgery (vaginal abscess ), Tubal Ligation Orthopedic Surgeries: Surgical HX of;: 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 ENT: Pupils equal round reactive to light. EOMs intact. Mucous membranes moist. Neck: Supple. No JVD or bruit. Cardiovascular: Regular rate and rhythm. No murmur rub or gallop Lungs: Decreased breath sounds in the bases. No rales Abdomen: Soft. Nontender. Positive bowel sounds. No organomegaly Extremities: 1-2+ edema Results - Labs CBC & BMP: 01/23/17 04:00 01/23/17 07:00 Assessment and Plan (1) Solitary kidney, acquired Status: Acute Assessment and plan: 51-year-old woman admitted with: * Obesity/hypoventilation syndrome * CHF. She decreased her diuretic on her own at home. She is currently on Lasix 40 mg IV twice daily. Shortness of breath is better today. This can probably be decreased back to her previous dose of 40 mg p.o. daily soon * Solitary kidney. Renal function is stable * Hypertension Current Visit: Yes (2) Congestive heart failure Status: Acute Current Visit: Yes Qualifiers: Congestive heart failure type: unspecified congestive heart failure type Congestive heart failure chronicity: acute Qualified Code(s): I50.9 - Heart failure, unspecified (3) Diabetes mellitus Status: Chronic Current Visit: Yes Qualifiers: Diabetes mellitus type: type 2 Diabetes mellitus complication detail: with polyneuropathy Diabetes mellitus rodent exterminator insulin use: with fpc use (4) Hypoventilation associated with obesity Status: Chronic Current Visit: Yes (5) Obstructive sleep apnea Status: Chronic Current Visit: Yes (6) Essential hypertension Status: Chronic Current Visit: No
--- NOTE | 2017-01-23 14:39 | Internal Med Progress Note ---
Assessment and Plan (1) Congestive heart failure Status: Resolved Current Visit: Yes Qualifiers: Congestive heart failure type: unspecified congestive heart failure type Congestive heart failure chronicity: acute Qualified Code(s): I50.9 - Heart failure, unspecified (2) Exertional dyspnea Status: Chronic Current Visit: Yes (3) Hypoxia Status: Resolved Current Visit: Yes (4) Obstructive sleep apnea Status: Chronic Current Visit: Yes (5) Pneumonia Status: Acute Current Visit: Yes Qualifiers: Pneumonia type: due to unspecified organism Laterality: bilateral Lung location: lower lobe of lung Qualified Code(s): J18.9 - Pneumonia, unspecified organism (6) Diabetes mellitus Status: Chronic Current Visit: Yes Qualifiers: Diabetes mellitus type: type 2 Diabetes mellitus complication detail: with polyneuropathy Diabetes mellitus mcfp insulin use: with mcfp use (7) Hypoventilation associated with obesity Status: Chronic Current Visit: Yes (8) Morbid obesity Status: Chronic Current Visit: Yes Qualifiers: Obesity type: due to excess calories Qualified Code(s): E66.01 - Morbid ( severe) obesity due to excess calories Internal Medicine - PN: Subj Interval history: Ms. Brown is a 51 year old female with history of left solitary kidney (right nephrectomy secondary to renal carcinoma), juvenile onset RA, DM, gastroparesis , peripheral neuropathy, osteoarthritis, hypothyroid, depression, MANPREET on CPAP, home oxygen, peripheral chronic lymphedema, multiple skin wounds, Vit D deficiency, urinary urge incontinence, morbid obesity, who presented to ER with acute and worsening dyspnea. She has been febrile at home for about one week. While in the ER, she bent her head down and developed acute severe oxygen de- saturation as witnessed by ER staff, and she was placed on BiPAP and sent to CCU. She was seen in clinic over a year ago as a new patient and was sent to Weight Management clinic. She went initially. She is not a candidate for gastric sleeve, because of respiratory failure. Also, appropriate lifestyle changes to support weight loss are an issue for her. Will have senior mortgage loan processor see her in hospital. , she felt better but will stay another night in CCU, still shortness of breath, but vitals better. Theophylline had been added against carbon dioxide retention. Doing better. Discussed with her the senior mortgage loan processor consult. Exam (Progress Note) - Constitutional Vitals: Period Temp Pulse Resp BP Sys/Wallis Pulse Ox Last 24 Hr 97.3 F-98.7 F 66-76 20-30 128-175/54-82 87-100 General appearance: no acute distress - Respiratory Respiratory exam: Present: clear to auscultation bilaterally - Cardiovascular Cardiovascular exam: Present: regular rate and rhythm - GI/Abdominal GI/Abdominal exam: Present: soft. Absent: tenderness - Extremities Exam Extremities exam: Absent: edema - Neurological Exam Neurological exam: Present: alert - Psychiatric Psychiatric exam: Present: normal affect, normal mood - Skin Skin exam: Present: warm, dry Results - Labs CBC & BMP: 01/23/17 04:00 01/24/17 04:35 Specialty Discharge - Follow Up or Referrals Follow up with: Rosi Ovalle MD [Physician] - (February 14, 2017 07:15 appt scheduled with sleeplab)
[2017-01-23] MEDS ORDERED: ACETAMINOPHEN 325 MG TABLET PO PRN (14:57)
[2017-01-23] MEDS ORDERED: DOCUSATE SODIUM 100 MG CAPSULE PO PRN (14:57)
[2017-01-23] MEDS ORDERED: NON-FORMULARY MEDICATION (Tizanidine Hcl [Zanaflex] 4 MG) PO SCH (15:00)
[2017-01-23] MEDS: LEVOFLOXACIN INJ 250 MG in PREMIX 1 EACH IV SCH (18:29)
[2017-01-23] MEDS: ENOXAPARIN 40 MG/0.4 ML SYRINGE SUBCUT SCH (18:29)
--- NOTE | 2017-01-23 19:40 | ECHO Report ---
Connie Brown 01/23/2017 Exam Date: 08:02 Referring Physician: Giana BallardTechnologist: Age: 51 Ht (in): 63 Wt (lb): 390 FExam [facility] Gender: Echo [id number]: Dyspnea, unspecified, Heart failureIndications:, unspecified, CAD, Pneumonia, Acute respiratory failure with hypoxia, MANPREET, Obesity, NSTEMI BP: 139 / 64 HR: 71 OtherRhythm: Technical Quality: IMPRESSIONS Limited study due to body habitus. Normal left ventricular cavity size. Grossly normal systolic function. The endocardial borders are poorly visualized. Grade 2 diastolic dysfunction. Mild biatrial enlargement. Mild mitral regurgitation. Mild pulmonary hypertension. MEASUREMENTS (Male / Female) Normal Values 2D ECHO LV Diastolic Diameter PLAX 3.9 cm 4.2 - 5.9 / 3.9 - 5.3 cm LV Systolic Diameter PLAX 1.8 cm LV Fractional Shortening PLAX 54.3 % IVS Diastolic Thickness 1.2 cm 0.6 - 1.0 / 0.6 - 0.9 cm LVPW Diastolic Thickness 1.4 cm 0.6 - 1.0 / 0.6 - 0.9 cm RV Internal Dim ED PLAX 3.1 cm Aortic Root Diameter 2.5 cm LA Systolic Diameter LX 4.3 cm 3.0 - 4.0 / 2.7 - 3.8 cm DOPPLER TR Peak Velocity 289.0 cm/s TR Peak Gradient 33.4 mmHg FINDINGS Left Ventricle Normal left ventricular cavity size. Grossly normal systolic function. The endocardial borders are poorly visualized. Grade 2 diastolic dysfunction. Right Ventricle Normal right ventricular size. Right Atrium The right atrium is mildly enlarged. Left Atrium The left atrium is mildly enlarged. Mitral Valve Poorly visualized mitral valve, with mild regurgitation. Aortic Valve No aortic insufficiency or stenosis. Tricuspid Valve Morphologically normal tricuspid valve. Mild tricuspid valve regurgitation. Tricuspid regurgitation velocities suggest a PAP of 43 mmHg. Pulmonic Valve Morphologically normal pulmonic valve. Trace pulmonary valve regurgitation. Pericardium Normal pericardium without effusion. Aorta Normal ascending aorta dimension. Neo Stack (Electronically Signed) 23 Jan 2017 19:39Final Date:
--- NOTE | 2017-01-23 19:57 | Sleep Medicine Progress Note ---
Assessment and Plan (1) Obstructive sleep apnea Status: Chronic Assessment and plan: I think she is stable to resume her own CPAP usage. She will be scheduled for follow-up in the sleep clinic. Current Visit: Yes (2) Congestive heart failure Status: Acute Current Visit: Yes Qualifiers: Congestive heart failure type: unspecified congestive heart failure type Congestive heart failure chronicity: acute Qualified Code(s): I50.9 - Heart failure, unspecified (3) Diabetes mellitus Status: Chronic Current Visit: Yes Qualifiers: Diabetes mellitus type: type 2 Diabetes mellitus complication detail: with polyneuropathy Diabetes mellitus care home insulin use: with care home use (4) Morbid obesity Status: Chronic Current Visit: Yes Qualifiers: Obesity type: due to excess calories Qualified Code(s): E66.01 - Morbid ( severe) obesity due to excess calories Sleep Medicine Subjective Interval history: This patient is doing much better. She is breathing comfortably on nasal cannula O2. We did get her CPAP machine and downloaded it. Her compliance has been less than ideal but she has been using it. Her 60% usage right had a 33% compliance rate for over 4 hours. Her usage has been better in the last 2 weeks. I stressed the importance of CPAP compliance and follow-up in the sleep lab. She seems to have good control on 12 cm of CPAP. Her average AHI is 1.7. Exam (Progress Note) - Constitutional Vitals: Period Temp Pulse Resp BP Sys/Wallis Pulse Ox Last 24 Hr 97.1 F-98.7 F 66-91 20-30 111-175/49-82 87-100 Exam: She is alert and responsive in no acute distress. Chest with good air movement and no focal wheeze or rhonchi. Cardiac exam reveals a regular rhythm without murmur or gallop. Abdomen obese nontender extremities without increased edema. Neurologically, she is grossly intact and moves all extremities with good strength. Results - Labs CBC & BMP: 01/23/17 04:00 01/23/17 07:00 Lab Results: I have reviewed the past 24 hour labs
[2017-01-23] MEDS: INSULIN NPH 100 UNIT/ML SUBCUT SCH (21:54)
[2017-01-23] MEDS: PREGABALIN 75 MG CAPSULE PO SCH (21:55)
[2017-01-23] MEDS: HYDROXYCHLOROQUINE 200 MG TABLET PO SCH (21:55)
[2017-01-24] MEDS: methylPREDNISolone SOD SUC 40 MG/1 ML VIAL IV SCH ×3 (04:07→21:01)
[2017-01-24 07:05] LABS: Calcium 8.1 MG/DL (8.5-10.1); Osmolality,Calculated 297.1 MOS/KG (273-304); Potassium 4.2 MMOL/L (3.5-5.1)
[2017-01-24] MEDS: INSULIN REGULAR 100 UNIT/ML SUBCUT SCH ×4 (08:51→21:00)
[2017-01-24] MEDS: INSULIN NPH 100 UNIT/ML SUBCUT SCH ×2 (08:51→21:01)
[2017-01-24] MEDS: PANTOPRAZOLE 40 MG VIAL IV SCH (08:52)
[2017-01-24] MEDS: DOCUSATE SODIUM 100 MG CAPSULE PO SCH ×2 (08:52→21:03)
[2017-01-24] MEDS: ESCITALOPRAM 10 MG TABLET PO SCH (08:53)
[2017-01-24] MEDS: LEVOTHYROXINE 25 MCG TABLET PO SCH (08:53)
[2017-01-24] MEDS: THEOPHYLLINE ER (24 HR) 400 MG CAPSULE PO SCH (08:53)
[2017-01-24] MEDS: GLIMEPIRIDE 2 MG TABLET PO SCH (08:53)
[2017-01-24] MEDS: PREGABALIN 75 MG CAPSULE PO SCH ×2 (08:53→21:02)
[2017-01-24] MEDS: HYDROXYCHLOROQUINE 200 MG TABLET PO SCH ×2 (08:53→21:02)
[2017-01-24] MEDS: ASPIRIN 325 MG TABLET PO SCH (08:53)
[2017-01-24] MEDS: DESITIN 4OZ/NYSTATIN 15 GRAM MIXTURE PASTE TOP SCH ×2 (08:54→21:11)
[2017-01-24] MEDS: NYSTATIN POWDER 15 GM BOTTLE TOP SCH ×2 (08:54→21:11)
[2017-01-24] MEDS: FLUTICASONE 50 MCG NASAL SPRAY 16 GM BOTTLE BOTH NARES SCH (08:55)
[2017-01-24] MEDS ORDERED: FUROSEMIDE 40 MG/4 ML VIAL IV SCH (09:00)
--- NOTE | 2017-01-24 11:47 | Pulmonology Progress Note ---
Pulmonary - PN: Subj Interval history: Patient is a 51-year-old white lady that is very overweight and has obstructive sleep apnea. She is a diabetic with hypertension and has had a previous renal cell cancer resected. She has been treated for pneumonia and bronchitis and seems to be doing a little better. She says she had a fairly good night and is using her CPAP. She is not coughing or having chest pain now. Overall she feels like her breathing is better. Exam (Progress Note) - Constitutional Vitals: Period Temp Pulse Resp BP Sys/Wallis Pulse Ox Last 24 Hr 96.9 F-98.4 F 64-91 15-66 111-171/47-83 90-99 Exam: General appearance: no acute distress, morbidly obese, she looks very comfortable on CPAP - Head Head exam: Present: normal inspection, normocephalic - Eye Eye exam: Present: EOMI. Absent: scleral icterus - ENT ENT exam: Present: normal exam, other (Class IV Mallampati exam) - Neck Neck exam: Absent: lymphadenopathy, thyromegaly - Respiratory Respiratory exam: Present: She has fair breath sounds bilaterally without much wheezing now. - Cardiovascular Cardiovascular exam: Present: regular rate and rhythm. Absent: gallop, systolic murmur - GI/Abdominal GI/Abdominal exam: Present: normal bowel sounds, soft. Obese, absent: organomegaly, tenderness - Extremities Exam Extremities exam: Absent: calf tenderness, edema, her legs are nontender and the swelling is better. - Neurological Exam Neurological exam: Present: alert, oriented X3, CN II-XII intact - Psychiatric Psychiatric exam: Present: normal affect - Skin Skin exam: Present: warm, dry Results - Labs CBC & BMP: 01/23/17 04:00 01/24/17 04:35 Assessment and Plan (1) Morbid obesity Status: Chronic Assessment and plan: Patient is extremely large and has been using her CPAP machine. She says she had a fairly good night. Current Visit: Yes Qualifiers: Obesity type: due to excess calories Qualified Code(s): E66.01 - Morbid ( severe) obesity due to excess calories (2) Diabetes mellitus Status: Chronic Assessment and plan: Her glucoses are being monitored. Her glucose is around 300. Current Visit: Yes Qualifiers: Diabetes mellitus type: type 2 Diabetes mellitus complication detail: with polyneuropathy Diabetes mellitus terminal gauger supervisor insulin use: with terminal gauger supervisor use (3) Essential hypertension Status: Chronic Assessment and plan: Her blood pressure has been reasonably stable. She will continue with her present medicines. Current Visit: No (4) Hypoventilation associated with obesity Status: Chronic Assessment and plan: She does have mild CO2 retention and will try low-dose theophylline. She still alert today. Current Visit: Yes (5) Congestive heart failure Status: Acute Assessment and plan: The patient does seem to be diuresing fairly well. Her swelling is better. Current Visit: Yes Qualifiers: Congestive heart failure type: unspecified congestive heart failure type Congestive heart failure chronicity: acute Qualified Code(s): I50.9 - Heart failure, unspecified (6) Pneumonia Status: Acute Assessment and plan: The patient is getting antibiotics and may have some mild pneumonia. Clinically she seems to be doing okay. Current Visit: Yes Qualifiers: Pneumonia type: due to unspecified organism Laterality: bilateral Lung location: lower lobe of lung Qualified Code(s): J18.9 - Pneumonia, unspecified organism (7) Obstructive sleep apnea Status: Chronic Assessment and plan: The patient's CPAP machine is being evaluated. Current Visit: Yes
[2017-01-24] MEDS: cefTRIAXone 1,000 MG in SODIUM CHLORIDE 0.9% 100 ML IV SCH (12:18)
--- NOTE | 2017-01-24 12:18 | Sleep Medicine Progress Note ---
Assessment and Plan (1) Obstructive sleep apnea Status: Chronic Assessment and plan: Patient will continue with CPAP and follow-up in the sleep clinic after discharge. 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 She is breathing comfortably and slept with her own CPAP device last night. Download from her CPAP showed good control of her obstructive sleep apnea. We will have her schedule for follow-up in the sleep clinic. She will likely need reevaluation and re-titration. Exam (Progress Note) - Constitutional Vitals: Period Temp Pulse Resp BP Sys/Wallis Pulse Ox Last 24 Hr 96.9 F-98.4 F 64-91 15-66 111-171/47-83 90-99 Exam: She is alert and responsive in no acute distress. Chest with good air movement and no focal wheeze or rhonchi. Cardiac exam reveals a regular rhythm without murmur or gallop. Abdomen obese nontender extremities without increased edema. Neurologically, she is grossly intact and moves all extremities with good strength. Results - Labs CBC & BMP: 01/23/17 04:00 01/24/17 04:35 Lab Results: I have reviewed the past 24 hour labs
--- NOTE | 2017-01-24 13:52 | Internal Med Progress Note ---
Assessment and Plan (1) Congestive heart failure Status: Resolved Current Visit: Yes Qualifiers: Congestive heart failure type: unspecified congestive heart failure type Congestive heart failure chronicity: acute Qualified Code(s): I50.9 - Heart failure, unspecified (2) Exertional dyspnea Status: Chronic Current Visit: Yes (3) Hypoxia Status: Resolved Current Visit: Yes (4) Obstructive sleep apnea Status: Chronic Current Visit: Yes (5) Pneumonia Status: Acute Current Visit: Yes Qualifiers: Pneumonia type: due to unspecified organism Laterality: bilateral Lung location: lower lobe of lung Qualified Code(s): J18.9 - Pneumonia, unspecified organism (6) Diabetes mellitus Status: Chronic Current Visit: Yes Qualifiers: Diabetes mellitus type: type 2 Diabetes mellitus complication detail: with polyneuropathy Diabetes mellitus prison insulin use: with prison use (7) Hypoventilation associated with obesity Status: Chronic Current Visit: Yes (8) Morbid obesity Status: Chronic Current Visit: Yes Qualifiers: Obesity type: due to excess calories Qualified Code(s): E66.01 - Morbid ( severe) obesity due to excess calories Internal Medicine - PN: Subj Interval history: Ms. Brown is a 51 year old female with history of left solitary kidney (right nephrectomy secondary to renal carcinoma), juvenile onset RA, DM, gastroparesis , peripheral neuropathy, osteoarthritis, hypothyroid, depression, MANPREET on CPAP, home oxygen, peripheral chronic lymphedema, multiple skin wounds, Vit D deficiency, urinary urge incontinence, morbid obesity, who presented to ER with acute and worsening dyspnea. She has been febrile at home for about one week. While in the ER, she bent her head down and developed acute severe oxygen de- saturation as witnessed by ER staff, and she was placed on BiPAP and sent to CCU. She was seen in clinic over a year ago as a new patient and was sent to [facility] clinic. She went initially. She is not a candidate for gastric sleeve, because of respiratory failure. Also, appropriate lifestyle changes to support weight loss are an issue for her. Will have supervising bailiff see her in hospital. , she felt better but will stay another night in CCU, still shortness of breath, but vitals better. Theophylline had been added against carbon dioxide retention. Doing better. Discussed with her the supervising bailiff consult. Friday, she is feeling better today than yesterday. She will be moved to the floor. Started her on 1200 terry daily diet. She will need to follow up with Dr. Ovalle after discharge. Exam (Progress Note) - Constitutional Vitals: Period Temp Pulse Resp BP Sys/Wallis Pulse Ox Last 24 Hr 96.9 F-98.4 F 64-91 15-66 111-176/47-86 90-99 Exam: General appearance: no acute distress - Respiratory Respiratory exam: Present: clear to auscultation bilaterally - Cardiovascular Cardiovascular exam: Present: regular rate and rhythm - GI/Abdominal GI/Abdominal exam: Present: soft. Absent: tenderness - Extremities Exam Extremities exam: Absent: edema - Neurological Exam Neurological exam: Present: alert - Psychiatric Psychiatric exam: Present: normal affect, normal mood - Skin Skin exam: Present: warm, dry Results - Labs CBC & BMP: 01/23/17 04:00 01/24/17 04:35 Specialty Discharge - Follow Up or Referrals Follow up with: Rosi Ovalle MD [Physician] - (February 14, 2017 07:15 appt scheduled with sleeplab)
[2017-01-24] MEDS: amLODIPine 5 MG TABLET PO SCH (14:47)
[2017-01-24] MEDS: CHOLECALCIFEROL 1,000 UNIT TABLET PO SCH (14:47)
--- NOTE | 2017-01-24 15:59 | Nephrology Progress Note ---
Nephrology - PN: Subj Interval history: Shortness of breath has improved. Exam (PN)-Nephrology - Vital Signs Vital signs: Period Temp Pulse Resp BP Sys/Wallis Pulse Ox Last 24 Hr 96.9 F-98.4 F 64-91 15-66 111-177/47-86 90-99 Exam: ENT: Normal Cardiovascular: Regular rate and rhythm. No murmur rub or gallop Lungs: Clear Extremities: 1-2+ edema - Lab 01/23/17 04:00 01/24/17 04:35 Most recent lab results ABG pH 7.380 (7.35-7.45) 01/22/17 Unknown ABG pCO2 48.1 MM HG (35-48) H 01/22/17 Unknown ABG pO2 81.1 MM HG (80-95) 01/22/17 Unknown ABG HCO3 26.7 MMOL/L (20-26) H 01/22/17 Unknown ABG O2 Saturation 95.2 % (95-100) 01/22/17 Unknown Calcium 8.1 MG/DL (8.5-10.1) L 01/24/17 04:35 Magnesium 2.1 MG/DL (1.8-2.4) 01/23/17 07:00 Assessment and Plan (1) Solitary kidney, acquired Status: Acute Assessment and plan: 51-year-old woman admitted with: * Obesity/hypoventilation syndrome * CHF. She decreased her diuretic on her own at home. Lasix changed to p.o. * Solitary kidney. Renal function is stable * Hypertension Current Visit: Yes (2) Congestive heart failure Status: Acute Current Visit: Yes Qualifiers: Congestive heart failure type: unspecified congestive heart failure type Congestive heart failure chronicity: acute Qualified Code(s): I50.9 - Heart failure, unspecified (3) Diabetes mellitus Status: Chronic Current Visit: Yes Qualifiers: Diabetes mellitus type: type 2 Diabetes mellitus complication detail: with polyneuropathy Diabetes mellitus intermission coordinator insulin use: with fci use (4) Hypoventilation associated with obesity Status: Chronic Current Visit: Yes (5) Obstructive sleep apnea Status: Chronic Current Visit: Yes (6) Essential hypertension Status: Chronic Current Visit: No
[2017-01-24] MEDS: INSULIN NPH/REGULAR 70/30 100 UNIT/ML SUBCUT SCH (17:02)
[2017-01-24] MEDS: ENOXAPARIN 40 MG/0.4 ML SYRINGE SUBCUT SCH (17:59)
[2017-01-24] MEDS: LEVOFLOXACIN INJ 250 MG in PREMIX 1 EACH IV SCH (21:01)
[2017-01-24] MEDS: CARVEDILOL 12.5 MG TABLET PO SCH (21:02)
[2017-01-25] MEDS: methylPREDNISolone SOD SUC 40 MG/1 ML VIAL IV SCH ×3 (03:10→21:01)
[2017-01-25 06:30] LABS: Hematocrit 37.5 VOL% (35.7-47.0); Hemoglobin 11.5 GM/DL (12.0-16.0); Immature Granulocytes % 1.5 %; Lymphocytes # 0.6 10*3/uL (1.4-4.0); Lymphocytes % 9.2 % (21.3-54.2); Mean Corpuscular HGB Conc 30.7 GM/DL (32-36); Mean Corpuscular Hemoglobin 30 PG (27-34); Mean Corpuscular Volume 98.4 FL (87-102); Mean Platelet Volume 10.6 FL (9.6-12.0); Monocytes # 0.3 10*3/uL (0.11-0.8); Neutrophils # 5.7 10*3/uL (1.4-7.4); Neutrophils % 84.3 % (38.7-73.9); Platelet Count 252 T/CUMM (130-400); Red Blood Count 3.81 MC/CUMM (3.8-5.5); Red Cell Distribution Width 12.7 % (9.3-17.3); White Blood Count 6.7 T/CUMM (4-12)
--- NOTE | 2017-01-25 07:04 | Family Practice Progress Note ---
Family Practice - PN: Subj Interval history: Patient had a good night and states she is breathing better. She denies any chest pain or shortness of breath. Denies any fever or chills. Exam (Progress Note) - Constitutional Vitals: Period Temp Pulse Resp BP Sys/Wallis Pulse Ox Last 24 Hr 97.0 F-98.2 F 64-76 14-66 127-177/57-86 93-98 Exam: Objective well-developed white female no acute distress. She is currently on her BiPAP. She is not dyspneic at rest. Cardiovascular: Heart rates regular without murmurs or gallops. Respiratory: Lungs clear to auscultation bilaterally. Abdomen: Abdomen soft and nontender to palpation. Results - Labs CBC & BMP: 01/25/17 01:58 01/24/17 04:35 Lab Results: I have reviewed the past 24 hour labs Assessment and Plan (1) Hypoventilation associated with obesity Status: Chronic Assessment and plan: 01/25/2017: Patient is definitely improving Current Visit: Yes Specialty Discharge - Follow Up or Referrals Follow up with: Rosi Ovalle MD [Physician] - (February 14, 2017 07:15 appt scheduled with sleeplab)
[2017-01-25 07:10] LABS: Alanine Aminotransferase 17 U/L (13-56); Albumin 2.7 G/DL (3.4-5.0); Alkaline Phosphatase 73 U/L (45-117); Aspartate Amino Transferase 10 U/L (0-37); Bilirubin,Total < 0.39 MG/DL (0.2-1.0); Calcium 8.5 MG/DL (8.5-10.1); Total Protein 6.3 G/DL (6.4-8.3)
[2017-01-25 07:11] LABS: Blood Urea Nitrogen 29 MG/DL (7-18); Glucose 380 MG/DL (74-106); Osmolality,Calculated 302.3 MOS/KG (273-304); Potassium 4.6 MMOL/L (3.5-5.1); Sodium 141 MMOL/L (136-145)
[2017-01-25] MEDS: INSULIN NPH/REGULAR 70/30 100 UNIT/ML SUBCUT SCH ×3 (08:06→17:31)
[2017-01-25] MEDS: INSULIN REGULAR 100 UNIT/ML SUBCUT SCH ×4 (08:07→21:02)
[2017-01-25] MEDS: GLIMEPIRIDE 2 MG TABLET PO SCH (08:08)
[2017-01-25] MEDS: ASPIRIN 325 MG TABLET PO SCH (09:27)
[2017-01-25] MEDS: DOCUSATE SODIUM 100 MG CAPSULE PO SCH ×2 (09:27→21:02)
[2017-01-25] MEDS: PANTOPRAZOLE 40 MG VIAL IV SCH (09:27)
[2017-01-25] MEDS: THEOPHYLLINE ER (24 HR) 400 MG CAPSULE PO SCH (09:28)
[2017-01-25] MEDS: CHOLECALCIFEROL 1,000 UNIT TABLET PO SCH (09:28)
[2017-01-25] MEDS: FUROSEMIDE 40 MG TABLET PO SCH (09:28)
[2017-01-25] MEDS: LEVOTHYROXINE 25 MCG TABLET PO SCH (09:28)
[2017-01-25] MEDS: amLODIPine 5 MG TABLET PO SCH (09:28)
[2017-01-25] MEDS: CARVEDILOL 12.5 MG TABLET PO SCH ×2 (09:28→21:02)
[2017-01-25] MEDS: PREGABALIN 75 MG CAPSULE PO SCH ×2 (09:28→21:02)
[2017-01-25] MEDS: HYDROXYCHLOROQUINE 200 MG TABLET PO SCH ×2 (09:28→21:02)
[2017-01-25] MEDS: ESCITALOPRAM 10 MG TABLET PO SCH (09:28)
[2017-01-25] MEDS: FLUTICASONE 50 MCG NASAL SPRAY 16 GM BOTTLE BOTH NARES SCH (09:29)
[2017-01-25] MEDS: DESITIN 4OZ/NYSTATIN 15 GRAM MIXTURE PASTE TOP SCH ×2 (09:29→21:03)
[2017-01-25] MEDS: NYSTATIN POWDER 15 GM BOTTLE TOP SCH ×2 (09:29→21:03)
[2017-01-25] MEDS: INSULIN NPH 100 UNIT/ML SUBCUT SCH ×2 (09:29→21:02)
[2017-01-25] MEDS: cefTRIAXone 1,000 MG in SODIUM CHLORIDE 0.9% 100 ML IV SCH (11:37)
[2017-01-25] MEDS: ENOXAPARIN 40 MG/0.4 ML SYRINGE SUBCUT SCH (18:05)
[2017-01-25] MEDS: LEVOFLOXACIN INJ 250 MG in PREMIX 1 EACH IV SCH (21:03)
[2017-01-26] MEDS: methylPREDNISolone SOD SUC 40 MG/1 ML VIAL IV SCH ×3 (02:55→20:32)
[2017-01-26] MEDS ORDERED: ALBUTEROL/IPRATROPIUM 3 ML NEB RESP TX SCH (07:00)
--- NOTE | 2017-01-26 07:22 | Family Practice Progress Note ---
Family Practice - PN: Subj Interval history: Patient states he had a good night and she is not having any chest pain. She is breathing better. She states she is not dyspneic at rest. She slept well last night with her BiPAP Exam (Progress Note) - Constitutional Vitals: Period Temp Pulse Resp BP Sys/Wallis Pulse Ox Last 24 Hr 97.2 F-97.9 F 63-72 18-20 116-154/55-67 92-96 Exam: Objective well-developed obese white female no acute distress. She states she is sleeping well with her BiPAP. Cardiovascular: Heart rates regular without murmurs or gallops. Respiratory: Lungs clear to auscultation bilaterally. Abdomen: Abdomen soft and nontender to palpation. Results - Labs CBC & BMP: 01/25/17 01:58 01/25/17 01:58 Lab Results: I have reviewed the past 24 hour labs Assessment and Plan (1) Hypoventilation associated with obesity Status: Chronic Assessment and plan: 01/25/2017: Patient is definitely improving 01/26/2017: Patient appears to be improving. All of her cultures are negative thus far. Current Visit: Yes Specialty Discharge - Follow Up or Referrals Follow up with: Rosi Ovalle MD [Physician] - 02/14/17 7:15 am (February 14, 2017 07:15 appt scheduled with sleepSSEV)
[2017-01-26] MEDS: INSULIN REGULAR 100 UNIT/ML SUBCUT SCH ×4 (08:25→20:27)
[2017-01-26] MEDS: INSULIN NPH/REGULAR 70/30 100 UNIT/ML SUBCUT SCH ×3 (08:26→16:27)
[2017-01-26] MEDS: INSULIN NPH 100 UNIT/ML SUBCUT SCH ×2 (08:26→20:28)
[2017-01-26] MEDS: GLIMEPIRIDE 2 MG TABLET PO SCH (08:27)
[2017-01-26] MEDS: CHOLECALCIFEROL 1,000 UNIT TABLET PO SCH (09:14)
[2017-01-26] MEDS: LEVOTHYROXINE 25 MCG TABLET PO SCH (09:14)
[2017-01-26] MEDS: ASPIRIN 325 MG TABLET PO SCH (09:14)
[2017-01-26] MEDS: HYDROXYCHLOROQUINE 200 MG TABLET PO SCH ×2 (09:14→20:32)
[2017-01-26] MEDS: PANTOPRAZOLE 40 MG VIAL IV SCH (09:14)
[2017-01-26] MEDS: amLODIPine 5 MG TABLET PO SCH (09:15)
[2017-01-26] MEDS: CARVEDILOL 12.5 MG TABLET PO SCH ×2 (09:15→20:38)
[2017-01-26] MEDS: THEOPHYLLINE ER (24 HR) 400 MG CAPSULE PO SCH (09:15)
[2017-01-26] MEDS: FUROSEMIDE 40 MG TABLET PO SCH (09:15)
[2017-01-26] MEDS: PREGABALIN 75 MG CAPSULE PO SCH ×2 (09:15→20:32)
[2017-01-26] MEDS: ESCITALOPRAM 10 MG TABLET PO SCH (09:15)
[2017-01-26] MEDS: DOCUSATE SODIUM 100 MG CAPSULE PO SCH ×2 (09:15→20:32)
[2017-01-26] MEDS: FLUTICASONE 50 MCG NASAL SPRAY 16 GM BOTTLE BOTH NARES SCH (09:20)
[2017-01-26] MEDS: NYSTATIN POWDER 15 GM BOTTLE TOP SCH ×2 (09:21→20:33)
[2017-01-26] MEDS: DESITIN 4OZ/NYSTATIN 15 GRAM MIXTURE PASTE TOP SCH ×2 (09:21→20:33)
[2017-01-26] MEDS: cefTRIAXone 1,000 MG in SODIUM CHLORIDE 0.9% 100 ML IV SCH (10:14)
--- NOTE | 2017-01-26 14:58 | Pulmonology Progress Note ---
Pulmonary - PN: Subj Interval history: Patient transferred from ICU yesteday, she has MANPREET/OHS. She is doing much better today from a pulmonary standpoint. She is using CPAP at night without problem, feels like it helps her. Overall she feels improved Exam (Progress Note) - Constitutional Vitals: Period Temp Pulse Resp BP Sys/Wallis Pulse Ox Last 24 Hr 97.2 F-97.9 F 63-72 16-20 116-154/55-69 92-98 General appearance: morbidly obese - Head Head exam: Present: normal inspection - Neck Neck exam: Present: normal inspection - Respiratory Respiratory exam: Present: clear to auscultation bilaterally - Cardiovascular Cardiovascular exam: Present: regular rate and rhythm Results - Labs CBC & BMP: 01/25/17 01:58 01/25/17 01:58 Lab Results: I have reviewed the past 24 hour labs Assessment and Plan (1) Hypoventilation associated with obesity Status: Chronic Assessment and plan: Patient just needs to continue to use her CPAP while asleep. She is to follow up with Dr Ovalle after discharge for repeat PSG. No other recs at this time. Please call if further questions Current Visit: Yes (2) Obstructive sleep apnea Status: Chronic Current Visit: Yes Specialty Discharge - Follow Up or Referrals Follow up with: Rosi Ovalle MD [Physician] - 02/14/17 7:15 am (February 14, 2017 07:15 appt scheduled with sleeplab)
[2017-01-26] MEDS: ALBUTEROL/IPRATROPIUM 3 ML NEB RESP TX PRN (19:45)
[2017-01-26] MEDS: LEVOFLOXACIN INJ 250 MG in PREMIX 1 EACH IV SCH (20:27)
[2017-01-26] MEDS: ENOXAPARIN 40 MG/0.4 ML SYRINGE SUBCUT SCH (20:33)
[2017-01-27] MEDS: methylPREDNISolone SOD SUC 40 MG/1 ML VIAL IV SCH ×3 (04:47→20:58)
[2017-01-27] MEDS: INSULIN NPH/REGULAR 70/30 100 UNIT/ML SUBCUT SCH ×3 (07:57→17:49)
[2017-01-27] MEDS: INSULIN REGULAR 100 UNIT/ML SUBCUT SCH ×4 (07:57→20:57)
--- NOTE | 2017-01-27 08:11 | Family Practice Progress Note ---
Family Practice - PN: Subj Interval history: Patient states he is doing fairly well and not having any new problems. She slept well last night on her BiPAP. Exam (Progress Note) - Constitutional Vitals: Period Temp Pulse Resp BP Sys/Wallis Pulse Ox Last 24 Hr 96.9 F-98.3 F 59-76 16-26 128-150/60-74 92-98 Exam: Objective well-developed obese white female no acute distress. She states she is sleeping well with her BiPAP. Cardiovascular: Heart rates regular without murmurs or gallops. Respiratory: Lungs clear to auscultation bilaterally. Abdomen: Abdomen soft and nontender to palpation. Results - Labs CBC & BMP: 01/25/17 01:58 01/25/17 01:58 Lab Results: I have reviewed the past 24 hour labs Assessment and Plan (1) Hypoventilation associated with obesity Status: Chronic Assessment and plan: 01/25/2017: Patient is definitely improving 01/26/2017: Patient appears to be improving. All of her cultures are negative thus far. 01/27/2017: Patient is certainly clinically improved. Her cultures were all negative. Current Visit: Yes Specialty Discharge - Follow Up or Referrals Follow up with: Rosi Ovalle MD [Physician] - 02/14/17 7:15 am (February 14, 2017 07:15 appt scheduled with sleepCardMunch)
[2017-01-27] MEDS: ALBUTEROL/IPRATROPIUM 3 ML NEB RESP TX PRN (08:34)
[2017-01-27] MEDS: PANTOPRAZOLE 40 MG VIAL IV SCH (08:39)
[2017-01-27] MEDS: cefTRIAXone 1,000 MG in SODIUM CHLORIDE 0.9% 100 ML IV SCH (08:41)
[2017-01-27] MEDS: THEOPHYLLINE ER (24 HR) 400 MG CAPSULE PO SCH (08:42)
[2017-01-27] MEDS: LEVOTHYROXINE 25 MCG TABLET PO SCH (08:42)
[2017-01-27] MEDS: DOCUSATE SODIUM 100 MG CAPSULE PO SCH ×2 (08:42→20:55)
[2017-01-27] MEDS: PREGABALIN 75 MG CAPSULE PO SCH ×2 (08:42→20:55)
[2017-01-27] MEDS: CHOLECALCIFEROL 1,000 UNIT TABLET PO SCH (08:42)
[2017-01-27] MEDS: ASPIRIN 325 MG TABLET PO SCH (08:42)
[2017-01-27] MEDS: amLODIPine 5 MG TABLET PO SCH (08:42)
[2017-01-27] MEDS: ESCITALOPRAM 10 MG TABLET PO SCH (08:42)
[2017-01-27] MEDS: HYDROXYCHLOROQUINE 200 MG TABLET PO SCH ×2 (08:42→20:56)
[2017-01-27] MEDS: FUROSEMIDE 40 MG TABLET PO SCH (08:42)
[2017-01-27] MEDS: NYSTATIN POWDER 15 GM BOTTLE TOP SCH ×2 (08:43→21:05)
[2017-01-27] MEDS: FLUTICASONE 50 MCG NASAL SPRAY 16 GM BOTTLE BOTH NARES SCH (08:43)
[2017-01-27] MEDS: GLIMEPIRIDE 2 MG TABLET PO SCH (08:43)
[2017-01-27] MEDS: CARVEDILOL 12.5 MG TABLET PO SCH ×2 (08:43→20:56)
[2017-01-27] MEDS: INSULIN NPH 100 UNIT/ML SUBCUT SCH ×2 (08:43→20:57)
[2017-01-27] MEDS: DESITIN 4OZ/NYSTATIN 15 GRAM MIXTURE PASTE TOP SCH ×2 (08:44→20:59)
[2017-01-27] MEDS: LEVOFLOXACIN INJ 250 MG in PREMIX 1 EACH IV SCH (20:58)
[2017-01-27] MEDS: ENOXAPARIN 40 MG/0.4 ML SYRINGE SUBCUT SCH (20:59)
[2017-01-28] MEDS: methylPREDNISolone SOD SUC 40 MG/1 ML VIAL IV SCH (05:11)
[2017-01-28] MEDS: INSULIN NPH/REGULAR 70/30 100 UNIT/ML SUBCUT SCH ×3 (07:46→18:05)
[2017-01-28] MEDS: GLIMEPIRIDE 2 MG TABLET PO SCH (07:48)
[2017-01-28] MEDS: INSULIN REGULAR 100 UNIT/ML SUBCUT SCH ×4 (07:48→21:41)
[2017-01-28] MEDS: MORPHINE 2 MG/1 ML SYRINGE IV PRN ×2 (08:00→21:42)
[2017-01-28] MEDS: cefTRIAXone 1,000 MG in SODIUM CHLORIDE 0.9% 100 ML IV SCH (09:40)
[2017-01-28] MEDS: ASPIRIN 325 MG TABLET PO SCH (09:40)
[2017-01-28] MEDS: CARVEDILOL 12.5 MG TABLET PO SCH ×2 (09:42→21:41)
[2017-01-28] MEDS: LEVOTHYROXINE 25 MCG TABLET PO SCH (09:42)
[2017-01-28] MEDS: ESCITALOPRAM 10 MG TABLET PO SCH (09:42)
[2017-01-28] MEDS: DOCUSATE SODIUM 100 MG CAPSULE PO SCH ×2 (09:42→21:40)
[2017-01-28] MEDS: CHOLECALCIFEROL 1,000 UNIT TABLET PO SCH (09:42)
[2017-01-28] MEDS: THEOPHYLLINE ER (24 HR) 400 MG CAPSULE PO SCH (09:42)
[2017-01-28] MEDS: amLODIPine 5 MG TABLET PO SCH (09:42)
[2017-01-28] MEDS: PREGABALIN 75 MG CAPSULE PO SCH ×2 (09:43→21:40)
[2017-01-28] MEDS: tiZANidine 4 MG TABLET PO PRN (09:43)
[2017-01-28] MEDS: HYDROXYCHLOROQUINE 200 MG TABLET PO SCH ×2 (09:43→21:40)
[2017-01-28] MEDS: INSULIN NPH 100 UNIT/ML SUBCUT SCH ×2 (09:43→21:41)
[2017-01-28] MEDS: NYSTATIN POWDER 15 GM BOTTLE TOP SCH ×2 (09:43→21:40)
[2017-01-28] MEDS: FUROSEMIDE 40 MG TABLET PO SCH (09:43)
[2017-01-28] MEDS: FLUTICASONE 50 MCG NASAL SPRAY 16 GM BOTTLE BOTH NARES SCH (09:43)
[2017-01-28] MEDS: PANTOPRAZOLE 40 MG VIAL IV SCH (09:44)
[2017-01-28] MEDS: DESITIN 4OZ/NYSTATIN 15 GRAM MIXTURE PASTE TOP SCH ×2 (09:44→21:40)
--- NOTE | 2017-01-28 09:47 | Internal Med Progress Note ---
Assessment and Plan (1) Pneumonia Status: Acute Assessment and plan: 51-year-old female admitted to acute care * Pneumonia. Patient is on IV antibiotics. She is improving. We will repeat a chest x-ray on her * Hypertension. Blood pressure is stable * TJ Amanda. * Diabetes. Blood sugars are high. Will taper down steroids * Will get patient out of bed * Discussed with patient and her mother Current Visit: Yes Qualifiers: Pneumonia type: due to unspecified organism Laterality: bilateral Lung location: lower lobe of lung Qualified Code(s): J18.9 - Pneumonia, unspecified organism (2) Diabetes mellitus Status: Chronic Current Visit: Yes Qualifiers: Diabetes mellitus type: type 2 Diabetes mellitus complication detail: with polyneuropathy Diabetes mellitus usp insulin use: with usp use (3) Hypoventilation associated with obesity Status: Chronic Current Visit: Yes (4) Obstructive sleep apnea Status: Chronic Current Visit: Yes (5) Congestive heart failure Status: Resolved Current Visit: Yes Qualifiers: Congestive heart failure type: unspecified congestive heart failure type Congestive heart failure chronicity: acute Qualified Code(s): I50.9 - Heart failure, unspecified (6) Essential hypertension Status: Chronic Current Visit: No Internal Medicine - PN: Subj Interval history: Patient is a 51-year-old female with history of morbid obesity, diabetes, juvenile rheumatoid arthritis, neuropathy, hypothyroidism, obstructive sleep apnea and previous right nephrectomy. Patient was admitted with increased shortness of breath and congestion. She was found to have pneumonia and was started on antibiotics. She is feeling better today. She feels some pressure in her abdomen and feels it is gas. She denies any chest pain or shortness of breath. She denies any nausea or vomiting. Patient basically stays in her bed at home but is able to get up with the chair lift and uses motorized scooter at home. Exam (Progress Note) - Constitutional Vitals: Period Temp Pulse Resp BP Sys/Wallis Pulse Ox Last 24 Hr 96 F-98.4 F 61-92 18-20 124-152/63-88 92-98 Exam: Examination: GENERAL: NAD. Morbidly obese female NECK: Neck is supple. CVS: Regular rate and rhythm. S1 and S2 are normal. RESPIRATORY: Lungs are clear. Breath sounds are distant ABDOMEN: Soft and nontender. Bowel sounds are present. Morbid obesity EXT: No edema. Peripheral pulses are present. SKIN: Warm and dry. MSK: No obvious deformity. Results - Labs CBC & BMP: 01/25/17 01:58 01/25/17 01:58 Specialty Discharge - Follow Up or Referrals Follow up with: Rosi Ovalle MD [Physician] - 02/14/17 7:15 am (February 14, 2017 07:15 appt scheduled with sleeplab)
--- NOTE | 2017-01-28 11:09 | XRay Report ---
XR chest 1V portable Indication: SOB Comparison: Chest x-ray dated January 23, 2017 Technique: Single frontal view of the chest. Findings: Continued cardiomegaly. Continued bilateral lower lung atelectasis/consolidation and probable bilateral pleural fluid. This may be minimally improved on the left. Visualized osseous and surrounding soft tissue structures appear grossly unchanged. IMPRESSION: As above. PROCEDURE INTERPRETED AT [facility] DEPARTMENT OF RADIOLOGY Final Report Signed by: Dr Vignesh Mcguire
--- NOTE | 2017-01-28 18:29 | Pulmonology Progress Note ---
Pulmonary - PN: Subj Interval history: This 51-year-old white female has obesity hypoventilation syndrome with obstructive sleep apnea. Also has some bronchopneumonia. She is using her CPAP regularly at night. She was moved to the floor over the weekend and is feeling better. Her appetite is better. Exam (Progress Note) - Constitutional Vitals: Period Temp Pulse Resp BP Sys/Wallis Pulse Ox Last 24 Hr 96 F-98.8 F 61-84 16-20 132-156/63-84 92-98 Exam: She is alert and oriented vital signs normal. Pupils react to light. Throat is clear. Neck supple bruits. Chest is essentially clear. Heart normal rate and rhythm no murmurs. Abdomen obese unable to palpate abdominal organs. Extremities no clubbing or cyanosis she has some chronic woody edema with scaling of the lower extremities. Results - Labs CBC & BMP: 01/25/17 01:58 01/25/17 01:58 Lab Results: I have reviewed the past 24 hour labs Assessment and Plan (1) Hypoventilation associated with obesity Status: Chronic Assessment and plan: Continuing CPAP at bedtime. O2 sats look good. Current Visit: Yes (2) Pneumonia Status: Acute Assessment and plan: Probably can finish antibiotics another day or 2. Cultures have all been negative. Current Visit: Yes Qualifiers: Pneumonia type: due to unspecified organism Laterality: bilateral Lung location: lower lobe of lung Qualified Code(s): J18.9 - Pneumonia, unspecified organism (3) Obstructive sleep apnea Status: Chronic Assessment and plan: Again continuing CPAP at night. Current Visit: Yes Specialty Discharge - Follow Up or Referrals Follow up with: Rosi Ovalle MD [Physician] - 02/14/17 7:15 am (February 14, 2017 07:15 appt scheduled with sleepChug)
[2017-01-28] MEDS: LEVOFLOXACIN INJ 250 MG in PREMIX 1 EACH IV SCH (21:41)
[2017-01-28] MEDS: ENOXAPARIN 40 MG/0.4 ML SYRINGE SUBCUT SCH (21:42)
[2017-01-29 04:51] LABS: Basophils % 0.1 % (0.0-0.8); Eosinophils % 0.3 % (0.00-10.9); Hematocrit 38.6 VOL% (35.7-47.0); Hemoglobin 11.8 GM/DL (12.0-16.0); Immature Granulocytes % 1.5 %; Immature Granulocytes Absolute 0.14 #; Lymphocytes # 2.5 10*3/uL (1.4-4.0); Lymphocytes % 27.2 % (21.3-54.2); Mean Corpuscular HGB Conc 30.6 GM/DL (32-36); Mean Corpuscular Hemoglobin 29 PG (27-34); Mean Corpuscular Volume 95.8 FL (87-102); Mean Platelet Volume 10.8 FL (9.6-12.0); Monocytes # 0.9 10*3/uL (0.11-0.8); Monocytes % 10.3 % (1.7-12.7); Neutrophils # 5.5 10*3/uL (1.4-7.4); Neutrophils % 60.6 % (38.7-73.9); Platelet Count 268 T/CUMM (130-400); Red Blood Count 4.03 MC/CUMM (3.8-5.5); Red Cell Distribution Width 12.5 % (9.3-17.3)
[2017-01-29 05:31] LABS: Calcium 8.8 MG/DL (8.5-10.1); Osmolality,Calculated 286.3 MOS/KG (273-304); Potassium 3.9 MMOL/L (3.5-5.1)
[2017-01-29] MEDS: INSULIN REGULAR 100 UNIT/ML SUBCUT SCH ×4 (08:10→22:03)
--- NOTE | 2017-01-29 08:51 | Pulmonology Progress Note ---
Pulmonary - PN: Subj Interval history: This 51-year-old white female has obesity hypoventilation syndrome with obstructive sleep apnea. Also has some bronchopneumonia. She is using her CPAP regularly at night. She was moved to the floor over the weekend and is feeling better. Her appetite is better. 01/29/2017 patient is feeling better. Yesterday's chest x-ray shows a little bit less edema and effusion. Needs a little more diuresis. Probably near ready for discharge in a day or 2. Exam (Progress Note) - Constitutional Vitals: Period Temp Pulse Resp BP Sys/Wallis Pulse Ox Last 24 Hr 96.8 F-98.9 F 66-84 18-20 113-142/51-84 92-96 Exam: She is alert and oriented vital signs normal. Pupils react to light. Throat is clear. Neck supple bruits. Chest is essentially clear. Heart normal rate and rhythm no murmurs. Abdomen obese unable to palpate abdominal organs. Extremities no clubbing or cyanosis she has some chronic woody edema with scaling of the lower extremities. Little change from yesterday. Results - Labs CBC & BMP: 01/29/17 04:34 01/29/17 04:34 Lab Results: I have reviewed the past 24 hour labs - Diagnostic Findings Procedure: Chest x-ray: image reviewed by me (Yesterday's chest x-ray still shows haziness over the lower lobes. Difficult to read due to her obesity. However lungs to look better than the last x-ray dated 01/23/2017.) Assessment and Plan (1) Hypoventilation associated with obesity Status: Chronic Assessment and plan: Continuing CPAP at bedtime. O2 sats look good. 01/29/2017 continuing with CPAP at bedtime. Current Visit: Yes (2) Pneumonia Status: Acute Assessment and plan: Probably can finish antibiotics another day or 2. Cultures have all been negative. 01/29/17 likely finish antibiotics in the next 24 hours. Current Visit: Yes Qualifiers: Pneumonia type: due to unspecified organism Laterality: bilateral Lung location: lower lobe of lung Qualified Code(s): J18.9 - Pneumonia, unspecified organism (3) Obstructive sleep apnea Status: Chronic Assessment and plan: Again continuing CPAP at night. Current Visit: Yes Specialty Discharge - Follow Up or Referrals Follow up with: Rosi Ovalle MD [Physician] - 02/14/17 7:15 am (February 14, 2017 07:15 appt scheduled with sleeplab)
[2017-01-29] MEDS: cefTRIAXone 1,000 MG in SODIUM CHLORIDE 0.9% 100 ML IV SCH (09:05)
[2017-01-29] MEDS: methylPREDNISolone SOD SUC 40 MG/1 ML VIAL IV SCH (09:06)
[2017-01-29] MEDS: PANTOPRAZOLE 40 MG VIAL IV SCH (09:06)
[2017-01-29] MEDS: THEOPHYLLINE ER (24 HR) 400 MG CAPSULE PO SCH (09:07)
[2017-01-29] MEDS: tiZANidine 4 MG TABLET PO PRN (09:07)
[2017-01-29] MEDS: GLIMEPIRIDE 2 MG TABLET PO SCH (09:07)
[2017-01-29] MEDS: DOCUSATE SODIUM 100 MG CAPSULE PO SCH ×2 (09:07→22:02)
[2017-01-29] MEDS: amLODIPine 5 MG TABLET PO SCH (09:07)
[2017-01-29] MEDS: ASPIRIN 325 MG TABLET PO SCH (09:07)
[2017-01-29] MEDS: PREGABALIN 75 MG CAPSULE PO SCH ×2 (09:07→22:11)
[2017-01-29] MEDS: CHOLECALCIFEROL 1,000 UNIT TABLET PO SCH (09:07)
[2017-01-29] MEDS: HYDROXYCHLOROQUINE 200 MG TABLET PO SCH ×2 (09:07→22:02)
[2017-01-29] MEDS: CARVEDILOL 12.5 MG TABLET PO SCH ×2 (09:08→22:02)
[2017-01-29] MEDS: FUROSEMIDE 40 MG TABLET PO SCH (09:08)
[2017-01-29] MEDS: INSULIN NPH/REGULAR 70/30 100 UNIT/ML SUBCUT SCH ×3 (09:08→17:18)
[2017-01-29] MEDS: LEVOTHYROXINE 25 MCG TABLET PO SCH (09:08)
[2017-01-29] MEDS: ESCITALOPRAM 10 MG TABLET PO SCH (09:08)
[2017-01-29] MEDS: FLUTICASONE 50 MCG NASAL SPRAY 16 GM BOTTLE BOTH NARES SCH (09:09)
[2017-01-29] MEDS: DESITIN 4OZ/NYSTATIN 15 GRAM MIXTURE PASTE TOP SCH ×2 (09:11→22:07)
[2017-01-29] MEDS: NYSTATIN POWDER 15 GM BOTTLE TOP SCH ×2 (09:12→22:07)
--- NOTE | 2017-01-29 09:13 | Internal Med Progress Note ---
Assessment and Plan (1) Pneumonia Status: Acute Assessment and plan: 51-year-old female admitted to acute care * Pneumonia. Patient is on IV antibiotics. She is improving. Continue antibiotics for now * Hypertension. Blood pressure is stable * TJ Amanda. * Diabetes. Blood sugars are better controlled. Tapering steroid * Will get patient out of bed * Discussed with patient and her mother. 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 (3) Hypoventilation associated with obesity Status: Chronic Current Visit: Yes (4) Obstructive sleep apnea Status: Chronic Current Visit: Yes (5) Congestive heart failure Status: Resolved Current Visit: Yes Qualifiers: Congestive heart failure type: unspecified congestive heart failure type Congestive heart failure chronicity: acute Qualified Code(s): I50.9 - Heart failure, unspecified (6) Essential hypertension Status: Chronic Current Visit: No Internal Medicine - PN: Subj Interval history: Patient is a 51-year-old female with history of morbid obesity, diabetes, juvenile rheumatoid arthritis, neuropathy, hypothyroidism, obstructive sleep apnea and previous right nephrectomy. She is feeling better this morning. Her breathing has improved. She stood up with physical therapy yesterday. She denies any chest pain or shortness of breath. Exam (Progress Note) - Constitutional Vitals: Period Temp Pulse Resp BP Sys/Wallis Pulse Ox Last 24 Hr 96.8 F-98.9 F 66-84 18-20 113-142/51-84 92-96 Exam: Examination: GENERAL: NAD. Morbidly obese female NECK: Neck is supple. CVS: Regular rate and rhythm. S1 and S2 are normal. RESPIRATORY: Lungs are clear. Better air entry ABDOMEN: Soft and nontender. Bowel sounds are present. Morbid obesity EXT: No edema. Peripheral pulses are present. SKIN: Warm and dry. MSK: No obvious deformity. Results - Labs CBC & BMP: 01/29/17 04:34 01/29/17 04:34 Lab Results: I have reviewed the past 24 hour labs Specialty Discharge - Follow Up or Referrals Follow up with: Rosi Ovalle MD [Physician] - 02/14/17 7:15 am (February 14, 2017 07:15 appt scheduled with [facility])
[2017-01-29] MEDS: INSULIN NPH 100 UNIT/ML SUBCUT SCH ×2 (09:55→22:04)
[2017-01-29] MEDS: ALBUTEROL/IPRATROPIUM 3 ML NEB RESP TX PRN (11:09)
--- NOTE | 2017-01-29 13:13 | Physician Query Form ---
CLICK EDIT DOCUMENT TO SELECT QUERY ANSWER --> OK --> SIGN Meg Reno RN Clinical Civil Drafter W) [phone] (f) [phone] [email or web address]: Make your selection(s) from the choices in EACH section by typing an "x" and enter comments in the comment section. Please use your independent medical judgment in providing your response. This request does not imply that any particular answer is desired or expected. CLINICAL INDICATORS: (Providers should not edit this section) Based on documentation of "On home oxygen" "deSATS with movement of head" "obesity hypoventilation syndrome" "BIPAP applied" "Acute hypoxemia" "Bronchopneumonia" Treated with Oxygen, BIPAP, IV antibiotics, IV Lasix, and IV Solu Medrol. If possible, please further clarify the type and acuity of respiratory diagnosis : ACUITY: ( ) Acute ( ) Chronic ( x) Acute on Chronic TYPE: ( x) Respiratory failure with hypoxia ( ) Respiratory failure with hypercapnia ( ) Respiratory Arrest ( ) Postprocedural/postoperative respiratory failure ( ) Respiratory Insufficiency ( ) ARDS (Adult/Acute Respiratory Distress Syndrome) ( ) Other, please specify: ( ) Clinically unable to determine Recognized criteria for respiratory failure PH <7.35 or >7.45 PO2 <60 PCO2 >50 RR >24 O2 Sat <90% on RA or <95% on O2 Use of accessory muscles Unable to speak in full sentences Intubation is not required COMMENTS: PLEASE ALSO DOCUMENT RESPONSE IN PROGRESS NOTES AND/OR DISCHARGE SUMMARY Use of terms such as suspected, likely, or probable (associated with a specific diagnosis that is being evaluated, monitored, or treated as if it exists) are acceptable and can be restated in the discharge summary if not ruled out. MTDD
--- NOTE | 2017-01-29 19:21 | Nephrology Progress Note ---
Nephrology - PN: Subj Interval history: Shortness of breath has improved. She is comfortable today Exam (PN)-Nephrology - Vital Signs Vital signs: Period Temp Pulse Resp BP Sys/Wallis Pulse Ox Last 24 Hr 96.8 F-98.9 F 66-85 16-20 110-142/51-85 91-98 Exam: ENT: Normal Cardiovascular: Regular rate and rhythm. No murmur rub or gallop Lungs: Clear Extremities: 1+ brawny edema - Lab 01/29/17 04:34 01/29/17 04:34 Most recent lab results ABG pH 7.380 (7.35-7.45) 01/22/17 Unknown ABG pCO2 48.1 MM HG (35-48) H 01/22/17 Unknown ABG pO2 81.1 MM HG (80-95) 01/22/17 Unknown ABG HCO3 26.7 MMOL/L (20-26) H 01/22/17 Unknown ABG O2 Saturation 95.2 % (95-100) 01/22/17 Unknown Calcium 8.8 MG/DL (8.5-10.1) 01/29/17 04:34 Magnesium 2.1 MG/DL (1.8-2.4) 01/23/17 07:00 Assessment and Plan (1) Solitary kidney, acquired Status: Acute Assessment and plan: 51-year-old woman admitted with: * Obesity/hypoventilation syndrome * CHF. Improved. Continue Lasix 40 mg daily * Solitary kidney. Renal function is stable. 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
[2017-01-29] MEDS: LEVOFLOXACIN INJ 250 MG in PREMIX 1 EACH IV SCH (22:01)
[2017-01-29] MEDS: ENOXAPARIN 40 MG/0.4 ML SYRINGE SUBCUT SCH (22:02)
--- NOTE | 2017-01-30 08:16 | Internal Med Progress Note ---
Assessment and Plan (1) Pneumonia Status: Acute Assessment and plan: 51-year-old female admitted to acute care * Pneumonia. Patient is much better clinically * Hypertension. Blood pressure is stable * Diabetes. Blood sugars are better controlled. Tapering steroid * Her main problem is inability to get around even a few steps. She has been quite weak. Will try to get her to swing bed. Will ask physical therapy to start working with her at least twice a day. 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 (3) Hypoventilation associated with obesity Status: Chronic Current Visit: Yes (4) Obstructive sleep apnea Status: Chronic Current Visit: Yes (5) Congestive heart failure Status: Resolved Current Visit: Yes Qualifiers: Congestive heart failure type: unspecified congestive heart failure type Congestive heart failure chronicity: acute Qualified Code(s): I50.9 - Heart failure, unspecified (6) Essential hypertension Status: Chronic Current Visit: No Internal Medicine - PN: Subj Interval history: Patient is a 51-year-old female with history of morbid obesity, diabetes, juvenile rheumatoid arthritis, neuropathy, hypothyroidism, obstructive sleep apnea and previous right nephrectomy. She is feeling better this morning. Her breathing has improved. She has started physical therapy but is quite weak. Patient needs to take a few steps to get to her power chair or bedside commode at home. At this time she is quite weak Exam (Progress Note) - Constitutional Vitals: Period Temp Pulse Resp BP Sys/Wallis Pulse Ox Last 24 Hr 97.1 F-98.4 F 69-85 16-20 110-142/49-85 91-99 Exam: Examination: GENERAL: NAD. Morbidly obese female NECK: Neck is supple. CVS: Regular rate and rhythm. RESPIRATORY: Lungs are clear. Better air entry ABDOMEN: Soft and nontender. Bowel sounds are present. Morbid obesity EXT: No edema. Peripheral pulses are present. SKIN: Warm and dry. MSK: No obvious deformity. Results - Labs CBC & BMP: 01/29/17 04:34 01/29/17 04:34 Lab Results: I have reviewed the past 24 hour labs Specialty Discharge - Follow Up or Referrals Follow up with: Rosi Ovalle MD [Physician] - 02/14/17 7:15 am (February 14, 2017 07:15 appt scheduled with sleeplab)
--- NOTE | 2017-01-30 08:28 | Pulmonology Progress Note ---
Pulmonary - PN: Subj Interval history: This 51-year-old white female has obesity hypoventilation syndrome with obstructive sleep apnea. Also has some bronchopneumonia. She is using her CPAP regularly at night. She was moved to the floor over the weekend and is feeling better. Her appetite is better. 01/29/2017 patient is feeling better. Yesterday's chest x-ray shows a little bit less edema and effusion. Needs a little more diuresis. Probably near ready for discharge in a day or 2. 01/30/2017 patient is about back to baseline as far as her obesity hypoventilation syndrome and bronchopneumonia. Ready for discharge, however she is quite weak and not able to walk. Dr. Bruno is looking for swing bed for further physical therapy. Stable from pulmonary standpoint, I will sign off. Exam (Progress Note) - Constitutional Vitals: Period Temp Pulse Resp BP Sys/Wallis Pulse Ox Last 24 Hr 97.1 F-98.4 F 69-85 16-20 110-142/49-85 91-99 Exam: She is alert and oriented vital signs normal. Pupils react to light. Throat is clear. Neck supple bruits. Chest is essentially clear. Heart normal rate and rhythm no murmurs. Abdomen obese unable to palpate abdominal organs. Extremities no clubbing or cyanosis she has some chronic woody edema with scaling of the lower extremities. Results - Labs CBC & BMP: 01/29/17 04:34 01/29/17 04:34 Lab Results: I have reviewed the past 24 hour labs Assessment and Plan (1) Hypoventilation associated with obesity Status: Chronic Assessment and plan: Continuing CPAP at bedtime. O2 sats look good. 01/29/2017 continuing with CPAP at bedtime. 01/30/2017 she will need long-term follow-up with Dr. Price through the sleep lab. Current Visit: Yes (2) Pneumonia Status: Acute Assessment and plan: Probably can finish antibiotics another day or 2. Cultures have all been negative. 01/29/17 likely finish antibiotics in the next 24 hours. 01/30/2017 antibiotics may be discontinued. Current Visit: Yes Qualifiers: Pneumonia type: due to unspecified organism Laterality: bilateral Lung location: lower lobe of lung Qualified Code(s): J18.9 - Pneumonia, unspecified organism (3) Obstructive sleep apnea Status: Chronic Assessment and plan: Again continuing CPAP at night. 01/30/2017 continuing with CPAP at bedtime. Current Visit: Yes Specialty Discharge - Follow Up or Referrals Follow up with: Rosi Ovalle MD [Physician] - 02/14/17 7:15 am (February 14, 2017 07:15 appt scheduled with sleeplab)
[2017-01-30] MEDS: INSULIN REGULAR 100 UNIT/ML SUBCUT SCH ×4 (09:15→21:48)
[2017-01-30] MEDS: CHOLECALCIFEROL 1,000 UNIT TABLET PO SCH (09:16)
[2017-01-30] MEDS: PREGABALIN 75 MG CAPSULE PO SCH ×2 (09:17→21:49)
[2017-01-30] MEDS: THEOPHYLLINE ER (24 HR) 400 MG CAPSULE PO SCH (09:17)
[2017-01-30] MEDS: GLIMEPIRIDE 2 MG TABLET PO SCH (09:17)
[2017-01-30] MEDS: ASPIRIN 325 MG TABLET PO SCH (09:17)
[2017-01-30] MEDS: amLODIPine 5 MG TABLET PO SCH (09:17)
[2017-01-30] MEDS: HYDROXYCHLOROQUINE 200 MG TABLET PO SCH ×2 (09:17→21:49)
[2017-01-30] MEDS: CARVEDILOL 12.5 MG TABLET PO SCH ×2 (09:18→21:50)
[2017-01-30] MEDS: DOCUSATE SODIUM 100 MG CAPSULE PO SCH ×2 (09:18→21:49)
[2017-01-30] MEDS: FUROSEMIDE 40 MG TABLET PO SCH (09:18)
[2017-01-30] MEDS: ESCITALOPRAM 10 MG TABLET PO SCH (09:18)
[2017-01-30] MEDS: INSULIN NPH/REGULAR 70/30 100 UNIT/ML SUBCUT SCH ×3 (09:19→17:13)
[2017-01-30] MEDS: INSULIN NPH 100 UNIT/ML SUBCUT SCH ×2 (09:19→21:48)
[2017-01-30] MEDS: methylPREDNISolone SOD SUC 40 MG/1 ML VIAL IV SCH (09:20)
[2017-01-30] MEDS: cefTRIAXone 1,000 MG in SODIUM CHLORIDE 0.9% 100 ML IV SCH (09:21)
[2017-01-30] MEDS: PANTOPRAZOLE 40 MG VIAL IV SCH (09:21)
[2017-01-30] MEDS: LEVOTHYROXINE 25 MCG TABLET PO SCH (09:26)
[2017-01-30] MEDS: NYSTATIN POWDER 15 GM BOTTLE TOP SCH ×2 (09:26→21:51)
[2017-01-30] MEDS: FLUTICASONE 50 MCG NASAL SPRAY 16 GM BOTTLE BOTH NARES SCH (09:26)
[2017-01-30] MEDS: DESITIN 4OZ/NYSTATIN 15 GRAM MIXTURE PASTE TOP SCH ×2 (09:26→21:51)
[2017-01-30] MEDS: ENOXAPARIN 40 MG/0.4 ML SYRINGE SUBCUT SCH (21:49)
[2017-01-30] MEDS: LEVOFLOXACIN INJ 250 MG in PREMIX 1 EACH IV SCH (21:50)
[2017-01-30] MEDS: tiZANidine 4 MG TABLET PO PRN (22:21)
--- NOTE | 2017-01-31 09:05 | Internal Med Progress Note ---
Assessment and Plan (1) Pneumonia Status: Acute Assessment and plan: 51-year-old female admitted to acute care * Pneumonia. Patient has improved. * Hypertension. Blood pressure is stable * Diabetes. Blood sugars are better controlled. * Debility. Physical therapy is working with the patient. She is doing better * Trying to place her in the swing bed. * Discussed with patient and her mother. Current Visit: Yes Qualifiers: Pneumonia type: due to unspecified organism Laterality: bilateral Lung location: lower lobe of lung Qualified Code(s): J18.9 - Pneumonia, unspecified organism (2) Diabetes mellitus Status: Chronic Current Visit: Yes Qualifiers: Diabetes mellitus type: type 2 Diabetes mellitus complication detail: with polyneuropathy Diabetes mellitus residential insulin use: with residential use (3) Hypoventilation associated with obesity Status: Chronic Current Visit: Yes (4) Obstructive sleep apnea Status: Chronic Current Visit: Yes (5) Congestive heart failure Status: Resolved Current Visit: Yes Qualifiers: Congestive heart failure type: unspecified congestive heart failure type Congestive heart failure chronicity: acute Qualified Code(s): I50.9 - Heart failure, unspecified (6) Essential hypertension Status: Chronic Current Visit: No Internal Medicine - PN: Subj Interval history: Patient is a 51-year-old female with history of morbid obesity, diabetes, juvenile rheumatoid arthritis, neuropathy, hypothyroidism, obstructive sleep apnea and previous right nephrectomy. She is feeling better this morning. She denies any shortness of breath. She has worked with physical therapy. She took a few steps yesterday. Exam (Progress Note) - Constitutional Vitals: Period Temp Pulse Resp BP Sys/Wallis Pulse Ox Last 24 Hr 97.5 F-99 F 63-84 18-20 118-152/57-76 92-99 Exam: Examination: GENERAL: NAD. Morbidly obese female NECK: Neck is supple. CVS: Regular rate and rhythm. RESPIRATORY: Lungs are clear. Better air entry ABDOMEN: Soft and nontender. EXT: No edema. Peripheral pulses are present. SKIN: Warm and dry. MSK: No obvious deformity. Results - Labs CBC & BMP: 01/29/17 04:34 01/29/17 04:34 Specialty Discharge - Follow Up or Referrals Follow up with: Rosi Ovalle MD [Physician] - 02/14/17 7:15 am (February 14, 2017 07:15 appt scheduled with [employer]
[2017-01-31] MEDS: cefTRIAXone 1,000 MG in SODIUM CHLORIDE 0.9% 100 ML IV SCH (09:26)
[2017-01-31] MEDS: methylPREDNISolone SOD SUC 40 MG/1 ML VIAL IV SCH (09:30)
[2017-01-31] MEDS: PANTOPRAZOLE 40 MG VIAL IV SCH (09:30)
[2017-01-31] MEDS: THEOPHYLLINE ER (24 HR) 400 MG CAPSULE PO SCH (09:30)
[2017-01-31] MEDS: CHOLECALCIFEROL 1,000 UNIT TABLET PO SCH (09:30)
[2017-01-31] MEDS: CARVEDILOL 12.5 MG TABLET PO SCH (09:31)
[2017-01-31] MEDS: amLODIPine 5 MG TABLET PO SCH (09:31)
[2017-01-31] MEDS: FUROSEMIDE 40 MG TABLET PO SCH (09:31)
[2017-01-31] MEDS: LEVOTHYROXINE 25 MCG TABLET PO SCH (09:31)
[2017-01-31] MEDS: PREGABALIN 75 MG CAPSULE PO SCH (09:31)
[2017-01-31] MEDS: INSULIN NPH 100 UNIT/ML SUBCUT SCH (09:31)
[2017-01-31] MEDS: HYDROXYCHLOROQUINE 200 MG TABLET PO SCH (09:31)
[2017-01-31] MEDS: INSULIN NPH/REGULAR 70/30 100 UNIT/ML SUBCUT SCH ×2 (09:31→12:24)
[2017-01-31] MEDS: ESCITALOPRAM 10 MG TABLET PO SCH (09:31)
[2017-01-31] MEDS: GLIMEPIRIDE 2 MG TABLET PO SCH (09:31)
[2017-01-31] MEDS: ASPIRIN 325 MG TABLET PO SCH (09:31)
[2017-01-31] MEDS: DOCUSATE SODIUM 100 MG CAPSULE PO SCH (09:31)
[2017-01-31] MEDS: NYSTATIN POWDER 15 GM BOTTLE TOP SCH (09:32)
[2017-01-31] MEDS: FLUTICASONE 50 MCG NASAL SPRAY 16 GM BOTTLE BOTH NARES SCH (09:32)
[2017-01-31] MEDS: INSULIN REGULAR 100 UNIT/ML SUBCUT SCH ×2 (09:32→12:24)
[2017-01-31] MEDS: DESITIN 4OZ/NYSTATIN 15 GRAM MIXTURE PASTE TOP SCH (09:40)
[2017-01-31 11:43] VITALS: BP 152/74
[2017-01-31] MEDS ORDERED: LEVOFLOXACIN 500 MG TABLET PO SCH (12:00)
--- NOTE | 2017-01-31 12:00 | Discharge Summary ---
Hospital Course - Hospital Course Hospital Course: Patient is a 51-year-old female with history of multiple medical problems including morbid obesity, juvenile onset rheumatoid arthritis, diabetes, gastro- paresis, chronic lymphedema. She was admitted with acute pneumonia. Patient was seen in consultation by pulmonary medicine. She was started on IV antibiotics. She has gradually improved over the last several days. Patient is quite weak from the hospitalization and would require inpatient swing bed placement to regain her strength and get back to her baseline. She has been accepted at [facility] swing bed. Patient will be transferred today. She will follow-up with Dr. Green after discharge from the swing bed Diagnosis - Discharge Diagnosis (1) Pneumonia Status: Acute (2) Diabetes mellitus Status: Chronic (3) Hypoventilation associated with obesity Status: Chronic (4) Obstructive sleep apnea Status: Chronic (5) Congestive heart failure Status: Resolved (6) Essential hypertension Status: Chronic Specialty Discharge - Follow Up or Referrals Follow up with: Rosi Ovalle MD [Physician] - 02/14/17 7:15 am (February 14, 2017 07:15 appt scheduled with sleep[employer]z[facility]) Discharge Plan - Discharge Data Disposition: Disch/Xfer to Snf Condition at Discharge: Stable Discharge Diet: advance to your usual diet Activity: as per physical therapy - Discharge Medications New Albuterol/Ipratropium Neb [Duoneb] 3 ml RESP TX RT Q4H PRN PRN Reason: Shortness Of Breath/Wheezing Cholecalciferol [Vitamin D3] 2,000 unit PO DAILY tablet Levofloxacin Tab [Levaquin Tab] 500 mg PO Q24H tablet Theophylline ER Cap (24 Hr) [Hussein-24] 400 mg PO DAILY capsule amLODIPine [Norvasc] 5 mg PO DAILY tablet Nystatin Powder [Mycostatin Powder] 1 applic TOP BID applic Continue Carvedilol [Coreg] 12.5 mg PO BID Escitalopram [Lexapro] 10 mg PO QAM Fluticasone 50 Mcg Nasal Towson [Flonase Nasal Towson] 1 spray BOTH NARES QAM Insulin Regular, Human [NovoLIN R] See Protocol SUBCUT DIRECTED PRN PRN Reason: Glucose Management Levothyroxine Tab [Synthroid Tab] 25 mcg PO QAM Magnesium Chloride [Slow Mag] 64 mg PO BID Omeprazole [Prilosec] 20 mg PO BID Oxycodone HCl 10 mg PO TID PRN PRN Reason: Pain predniSONE TAB [PredniSONE] 10 mg PO DAILY sulfaSALAzine [Sulfasalazine] 500 mg PO BID Tizanidine HCl [Zanaflex] 4 mg PO TID Acetaminophen Tab [Tylenol Tab] 650 mg PO Q6H PRN #0 tablet PRN Reason: Fever > 100.4 Or Headache Albuterol/Ipratropium Neb [Duoneb] 3 ml RESP TX RT Q6H #120 nebulization solution Glimepiride [Amaryl] 2 mg PO DAILY W/BREAKFAST #30 tablet Potassium Chloride Cap/Tab [K Dur] 20 meq PO TID W/MEALS #90 tablet Hydroxychloroquine [Plaquenil] 200 mg PO BID #60 Aspirin Tab 325 mg PO QAM Furosemide Tab [Lasix Tab] 20 mg PO QAM Insulin NPH Hum/Reg Insulin Hm [NovoLIN 70/30] 40 unit SUBCUT TID W/MEALS Insulin NPH Human Isophane [Novolin N] 20 unit SUBCUT BID Docusate Sodium Cap [Colace Cap] 100 mg PO BID PRN PRN Reason: OPIOID INDUCED CONSTIPATION Pregabalin [Lyrica] 75 mg PO BID - Follow Up or Referral Follow Up: Rosi Ovalle MD [Physician] - 02/14/17 7:15 am (February 14, 2017 07:15 appt scheduled with sleep[facility]) - Forms/Instructions Instructions: Pneumonia (DC) Additional Discharge Instructions: Appointment with Dr. Paulina Green 2 weeks after discharge from swing bed Exam - Constitutional Vitals: Period Temp Pulse Resp BP Sys/Wallis Pulse Ox Last 24 Hr 97.5 F-99 F 63-84 18-20 118-152/57-76 92-99 Exam: Examination: GENERAL: NAD. Morbidly obese female NECK: Neck is supple. CVS: Regular rate and rhythm. RESPIRATORY: Lungs are clear. Better air entry ABDOMEN: Soft and nontender. EXT: No edema. Peripheral pulses are present. SKIN: Warm and dry. Discharge Results Procedures and tests throughout hospitalization: Pending Orders 02/01/17 04:00 Basic Metabolic Panel IN AM Comp Blood Count Auto Diff IN AM Labs on day of discharge: Labs from last 24 hours 01/31/17 01/31/17 01/30/17 11:14 07:06 20:43 POC Glucose 221 H 148 H 367 H 01/30/17 16:32 POC Glucose 352 H DS: Provider Date of admission: 01/22/17 11:39 Primary care physician: Paulina Green DO Attending physician on admission: Paulina Green DO Consults: 01/22/17 17:23 Consult to Case Mgmt/Social Srvs [CONS] Routine Reason for Case Mgmt/Social Srvs: Discharge Planning Consult to [facility], Educator [CONS] Routine Reason for Lacquerer: Diabetes Education Consult to Physician [CONS] Routine Comment: Sleep apnea Consulting Provider: Rosi Ovalle When should Consulting Provider be notified: In am 01/22/17 19:28 Consult to Dietitian [CONS] Routine Reason for Dietitian: Diet Recommendations Consult Comment: weight loss plan of 1200 terry 01/22/17 19:36 Consult to Physician [CONS] Routine Comment: respiratory failure/hypoxia/on BiPAP Consulting Provider: Tay Green 01/28/17 09:32 Consult to Occupational Therapy [CONS] Routine Reason for Occupational Therapy: Weakness Consult to Physical Therapy [CONS] Routine Reason for Physical Therapy: Weakness 01/30/17 07:54 Consult to Physical Therapy [CONS] Routine Reason for Physical Therapy: Weakness Start Therapy: Today Consult Comment: ambulate patient BID maybe up to chair 01/30/17 07:56 Consult to Case Mgmt/Social Srvs [CONS] Routine Reason for Case Mgmt/Social Srvs: Swingbed/SNF/[facility] Discharging clinician: Ambrocio Bruno MD
[2017-02-01] MEDS ORDERED: prednisoLONE 5 MG TABLET PO SCH (09:00)
--- NOTE | 2017-02-07 08:32 | Physician Query Form ---
CLICK EDIT DOCUMENT TO SELECT QUERY ANSWER --> OK --> SIGN Meg Reno RN Clinical Pharmaceutical Representative W) [phone] (f) [phone] [email or web address]: Make your selection(s) from the choices in EACH section by typing an "x" and enter comments in the comment section. Please use your independent medical judgment in providing your response. This request does not imply that any particular answer is desired or expected. CLINICAL INDICATORS: (Providers should not edit this section) Based on documentation of "Acute CHF" History of CHF. BNP 251. Echo shows " Grade 2 diastolic dysfunction" Treated with IV Lasix. Please provide further specificity regarding CHF. ACUITY: ( ) Acute (x ) Chronic ( ) Acute on Chronic ( ) Clinicallly unable to determine TYPE: ( ) Systolic (HFrEF - heart failure with reduced systolic function/EF) (x ) Diastolic (HFpEF - heart failure with preserved systolic function/EF) ( ) Combined Systolic/Diastolic ( ) Other, please specify: ( ) Clinically unable to determine ( ) The patient does NOT have CHF COMMENTS: PLEASE ALSO DOCUMENT RESPONSE IN PROGRESS NOTES AND/OR DISCHARGE SUMMARY Use of terms such as suspected, likely, or probable (associated with a specific diagnosis that is being evaluated, monitored, or treated as if it exists) are acceptable and can be restated in the discharge summary if not ruled out. MTDD
== END 2017-01-31 15:29 | disposition swing bed (61) | DRG 291 ==
LOC: EDUNIT# → EDBD → N.ED 08:24 → N.EDINP 11:39 → N.CC 15:45 → N.2E 01-24 19:35
PROVIDERS: ADMIT Internal Medicine; ATTEND Internal Medicine

== ENCOUNTER 2019-07-15 00:10 | Observation (INO) ==
[2019-07-15] MEDS ORDERED: ONDANSETRON 4 MG/2 ML VIAL IV STA (00:31)
[2019-07-15] MEDS ORDERED: FUROSEMIDE 40 MG/4 ML VIAL IV STA (00:31)
[2019-07-15] MEDS ORDERED: methylPREDNISolone SOD SUC 125 MG/2 ML VIAL IV STA (00:31)
[2019-07-15] MEDS ORDERED: AZITHROMYCIN INJ 500 MG in SODIUM CHLORIDE 0.9% 250 ML IV STA (00:52)
[2019-07-15 00:55] LABS: PT Patient Result 10.9 SECS (9.6-12.2); Partial Thromboplastin Time 25.2 SECS (20.8-36.0)
[2019-07-15] MEDS ORDERED: FUROSEMIDE 40 MG/4 ML VIAL ONE (01:00)
[2019-07-15] MEDS ORDERED: ALBUTEROL NEB SOLN 5 MG/ML 20 ML/BOTTLE RESP TX SCH (01:00)
[2019-07-15] MEDS ORDERED: AZITHROMYCIN 500 MG VIAL IV ONE (01:01)
[2019-07-15] MEDS ORDERED: ONDANSETRON 4 MG/2 ML VIAL ONE ×2 (01:01→07:35)
[2019-07-15] MEDS ORDERED: methylPREDNISolone SOD SUC 125 MG/2 ML VIAL ONE (01:02)
[2019-07-15] MEDS ORDERED: LEVOFLOXACIN INJ 750 MG in PREMIX 1 EACH IV STA (01:02)
[2019-07-15] MEDS ORDERED: LEVOFLOXACIN INJ 150 ML IV ONE (01:06)
[2019-07-15 01:13] LABS: Basophils % 0.4 % (0.0-0.8); Eosinophils # 0.1 10*3/uL (0.0-0.87); Eosinophils % 1.3 % (0.00-10.9); Hematocrit 41.5 VOL% (35.7-47.0); Hemoglobin 12.1 GM/DL (12.0-16.0); Immature Granulocytes % 0.4 %; Immature Granulocytes Absolute 0.03 #; Lymphocytes # 1.6 10*3/uL (1.4-4.0); Lymphocytes % 19.5 % (21.3-54.2); Mean Corpuscular HGB Conc 29.2 GM/DL (32-36); Mean Corpuscular Volume 102.5 FL (87-102); Mean Platelet Volume 11.3 FL (9.6-12.0); Monocytes % 11.9 % (1.7-12.7); Neutrophils % 66.5 % (38.7-73.9); Platelet Count 208 T/CUMM (130-400); Red Blood Count 4.05 MC/CUMM (3.8-5.5); Red Cell Distribution Width 13.4 % (9.3-17.3); White Blood Count 8.4 T/CUMM (4-12)
[2019-07-15 01:14] LABS: Alanine Aminotransferase 24 U/L (13-56); Albumin 3.4 G/DL (3.4-5.0); Alkaline Phosphatase 73 U/L (45-117); Aspartate Amino Transferase 15 U/L (0-37); Blood Urea Nitrogen 15 MG/DL (7-18); Calcium 9.4 MG/DL (8.5-10.1); Estimated Glom Filtration Rate 75 ML/MIN; Glucose 342 MG/DL (74-106); Osmolality,Calculated 289.7 MOS/KG (273-304); Total Protein 7.8 G/DL (6.4-8.3); Troponin I < 0.015 NG/ML (0.00-0.045)
[2019-07-15 02:17] LABS: Apearance,Urine CLOUDY (Clear); Bacteria,Urine Moderate /HPF (Few); Bilirubin,Urine Small mg/dL (Negative); Blood, Urine Small mg/dL (Negative); Glucose,Urine (UA) 150 mg/dL (Negative); Ketones,Urine Negative (Negative); Mucus,Urine Occasional /LPF (Occasional); Nitrite,Urine Negative (Negative); Protein,Urine 100 MG/DL; RBC,Urine 13 /HPF (0-4); Squamous Epithelial Cell,Urine Occasional /HPF (0-10); Urine Color Amber (Yellow); Urine Specific Gravity 1.026 (1.001-1.035); Urine Urobilinogen < 2.0 EU/DL (0.2-1.0); WBC,Urine 253 /HPF (0-6)
[2019-07-15] MEDS ORDERED: diphenhydrAMINE CAP 25 MG CAPSULE PO PRN (02:17)
[2019-07-15] MEDS ORDERED: GLUCAGON 1 MG VIAL IM PRN (02:17)
[2019-07-15] MEDS ORDERED: MORPHINE 4 MG/1 ML VIAL IV PRN (02:17)
[2019-07-15] MEDS ORDERED: DEXTROSE 50% 25 GM/50 ML VIAL IV PRN (02:17)
[2019-07-15] MEDS ORDERED: ONDANSETRON 4 MG/2 ML VIAL IV PRN (02:17)
[2019-07-15] MEDS ORDERED: BISACODYL 5 MG TABLET PO PRN (02:17)
[2019-07-15] MEDS ORDERED: NICOTINE 21 MG/24 HR PATCH TRANSDERM PRN (02:17)
[2019-07-15] MEDS ORDERED: guaiFENesin/DM ER 600-30 MG TABLET PO PRN (02:17)
[2019-07-15] MEDS ORDERED: ACETAMINOPHEN 325 MG TABLET PO PRN (02:17)
[2019-07-15] MEDS ORDERED: AZITHROMYCIN INJ 500 MG in SODIUM CHLORIDE 0.9% 250 ML IV SCH (02:30)
[2019-07-15] MEDS ORDERED: cefTRIAXone 1,000 MG in SYRINGE 1 EACH IV SCH (02:30)
[2019-07-15 02:56] LABS: Risk Ratio 2.82; VLDL CHOLESTEROL 26.6 MG/DL
[2019-07-15] MEDS ORDERED: HYDROmorphone 2 MG/1 ML VIAL ONE (07:35)
[2019-07-15] MEDS: ALBUTEROL/IPRATROPIUM 3 ML NEB RESP TX SCH ×3 (07:47→20:12)
[2019-07-15] MEDS ORDERED: tiZANidine 4 MG TABLET PO PRN (07:52)
[2019-07-15] MEDS ORDERED: oxyCODONE IR 5 MG TABLET PO PRN (07:52)
[2019-07-15] MEDS: INSULIN REGULAR 100 UNIT/ML SUBCUT SCH ×4 (08:43→21:59)
[2019-07-15] MEDS ORDERED: PANTOPRAZOLE 40 MG TABLET PO SCH (09:00)
[2019-07-15] MEDS ORDERED: HYDROXYCHLOROQUINE 200 MG TABLET PO SCH (09:00)
[2019-07-15] MEDS ORDERED: ASPIRIN EC 325 MG TABLET PO SCH (09:00)
[2019-07-15] MEDS ORDERED: sulfaSALAzine 500 MG TABLET PO SCH (09:00)
[2019-07-15] MEDS ORDERED: THEOPHYLLINE ER (24 HR) 400 MG TABLET PO SCH (09:00)
[2019-07-15] MEDS ORDERED: FUROSEMIDE 40 MG TABLET PO SCH (09:00)
[2019-07-15] MEDS ORDERED: INSULIN NPH/REGULAR 70/30 100 UNIT/ML SUBCUT SCH (09:00)
[2019-07-15] MEDS ORDERED: amLODIPine 5 MG TABLET PO SCH (09:00)
[2019-07-15] MEDS ORDERED: INSULIN NPH 100 UNIT/ML SUBCUT SCH (09:00)
[2019-07-15] MEDS ORDERED: ESCITALOPRAM 10 MG TABLET PO SCH (09:00)
[2019-07-15] MEDS ORDERED: OXYBUTYNIN XL 10 MG TABLET PO SCH (09:00)
[2019-07-15] MEDS ORDERED: GLIMEPIRIDE 2 MG TABLET PO SCH (09:30)
[2019-07-15] MEDS ORDERED: INSULIN GLARGINE 100 UNIT/ML SUBCUT SCH (09:40)
[2019-07-15] MEDS: FUROSEMIDE 40 MG/4 ML VIAL IV SCH ×2 (10:38→16:31)
[2019-07-15] MEDS: POTASSIUM CHLORIDE 20 MEQ TABLET PO SCH ×2 (10:39→20:59)
[2019-07-15] MEDS: PREGABALIN 75 MG CAPSULE PO SCH ×2 (10:39→20:59)
[2019-07-15] MEDS: carvediloL 12.5 MG TABLET PO SCH ×2 (10:40→20:59)
[2019-07-15] MEDS: MAGNESIUM CHLORIDE 64 MG TABLET PO SCH ×2 (10:40→20:59)
[2019-07-15] MEDS ORDERED: traZODone 50 MG TABLET PO SCH (21:00)
[2019-07-16] MEDS: ALBUTEROL/IPRATROPIUM 3 ML NEB RESP TX SCH ×2 (00:23→08:44)
[2019-07-16] MEDS ORDERED: LEVOFLOXACIN INJ 750 MG in PREMIX 1 EACH IV SCH (01:00)
[2019-07-16 04:01] VITALS: BP 127/67
[2019-07-16] MEDS ORDERED: LEVOTHYROXINE 25 MCG TABLET PO SCH (06:30)
[2019-07-16] MEDS ORDERED: LEVOFLOXACIN 750 MG TABLET PO SCH (09:00)
== END 2019-07-16 05:34 | disposition expired ==
LOC: N.EDINP 00:10 → N.ED 00:10 → SUATTDRO 02:17 → N.5E 03:49
PROVIDERS: ADMIT Internal Medicine; ATTEND Internal Medicine